=== PATIENT | female | born 1950 | race Caucasian/White ===

== ENCOUNTER 2022-02-22 09:00 | Outpatient (REF) | payer OTHER, SELFPAY | END 2022-02-22 09:01 | disposition home or self-care (01) | LOC: HO.SH 09:00 | PROVIDERS: Visit Provider Nurse Practitioner Adult Health | DX: Z01.118 Encounter for examination of ears and hearing with other abnormal findings (principal); H90.3 Sensorineural hearing loss, bilateral | CPT/HCPCS: 92557 ==

== ENCOUNTER 2023-08-27 11:57 | Emergency (ER) | payer MEDICARE, SELFPAY ==
--- NOTE | ~2023-08-27 | XR_ITS ---
EXAMINATION: XR CHEST CLINICAL INFORMATION: Cough COMPARISON: None available. TECHNIQUE: 2 views of the chest were obtained. FINDINGS: vascularity. LUNGS: Lungs are clear. No pneumothorax is seen. BONES: Bony skeleton is intact. XR/XR chest 2V IMPRESSION: Normal chest x-ray.
[2023-08-27 12:09] VITALS: BP 188/76; PULSE 70; RESP 24; TEMP 36.6; O2SAT 91; BMI 41.2
--- NOTE | 2023-08-27 12:13 | ED_ITS ---
HPI - General Adult General Chief complaint: Dyspnea Stated complaint: cough sinus on prednisone feels worse Time Seen by Provider: 08/27/23 12:25 Source: patient and family Mode of arrival: ambulatory Limitations: no limitations History of Present Illness ED Provider: Dr. Rodgers HPI narrative: 3 weeks of increasing cough and shortness of breath, cannot sleep because she is coughing so much, now productive of thick green sputum. patient has quit smoking but has a long history of smoking Onset (ago): week(s) Severity: moderate Related Data Previous Rx's ?Medication ?Instructions ?Recorded azithromycin 250 mg tablet 250 mg PO DAILY #4 tabs 08/27/23 Allergies Allergy/AdvReac Type Severity Reaction Status Date / Time No Known Allergies Allergy Verified 08/27/23 12:12 Review of Systems 2 Review of Systems: Yes all other systems are reviewed and are negative Neurologic: Denies Sensory deficit (Neuro) [facility] Social History Social History Advance Directives: No Advance Directives Information Provided: Yes Do you have a plan to hurt others: No Plan Physical Exam ED Vital Signs: Vital Signs - 24 hr 08/27/23 12:09 08/27/23 13:05 08/27/23 14:42 Temperature 97.8 F Pulse Rate 70 89 71 Respiratory Rate 24 H 20 18 Blood Pressure 188/76 H 172/57 H Pulse Oximetry 91 L 93 Oxygen Delivery Method Room Air Room Air BMI result Body Mass Index 41.2 Const Other: obese female coughing Nutritional Appearance: obese Orientation/consciousness: oriented to person and patient oriented x3 Limitations: no limitations HENMT Head: Yes normal to inspection Ears: external ears normal General nose exam: Normal external nose present Mouth: Normal oral and palatal mucosa present and oropharynx normal Throat: Yes posterior oropharynx normal Eyes General: appearance normal, both eyes and all related structures Neck Neck: Yes normal visual inspection Chest Chest palpation & inspection: normal inspection of the chest Resp Other: bilateral rales left greater than right Cardio Jugular venous distension: no JVD Rate: regular rate Rhythm: regular rhythm Heart sounds: S1 normal heart sound present and S2 normal heart sound present GI Inspection: Yes normal to inspection Palpation (GI): Soft to palpation, nontender and No hepatosplenomegaly present Auscultation: normal bowel sounds General: Yes no CVA tenderness Back/Spine/Pelvis Back: no CVA tenderness Skin General skin exam: no rashes or lesions noted Neuro General: oriented to person and patient oriented x3 Cranial nerves: Yes CN's II-XII intact bilaterally Motor exam (neuro): 5/5 motor strength present throughout Sensory Exam: No Sensory deficit (Neuro) Extrem General: Yes normal to inspection Psych Appearance: grossly normal Course Course Course Narrative: RME performed by Debbie Stout PA-C. Patient is a 72 year old assigned female at presenting to the emergency department with difficulty breathing. Patient states for 3 weeks she has had a cough that is getting progressively worse. Patient states that she is now having difficulty breathing. Detailed physical exam and review of systems are deferred to the reservation sales agent. EKG, labs, imaging, and swabs ordered. Patient brought back to room 6. Reevaluation(s) Reevaluation #1: no evidence of on pneumonia on xray but patient to be discharged on zpack as she producing thick green sputum Time: 15:33 Medications Administered Discontinued Medications Generic Name Dose Route Start Last Admin Trade Name Freq PRN Reason Stop Dose Admin Albuterol/Ipratropium 3 ml 08/27/23 13:00 08/27/23 13:02 Albuterol/Iprat 2.5/0.5mg 3 Ml Ampul.Neb INHALE 08/27/23 13:01 3 ml ONCE ONE Administration Azithromycin 500 mg 08/27/23 15:30 08/27/23 15:40 Azithromycin 500 Mg Tablet PO 08/27/23 15:31 500 mg ONCE ONE Administration Medical Decision Making Differential Diagnosis Differential Diagnoses: The differential diagnosis associated with the presentation includes (pneumonia, COPD exacerbation, bronchitis, cardiac ischemia were all considered) Admission/Observation Consideration of admission/observation: Escalation of care including admission/observation considered (upon arrival admission was considered) Lab Data 08/27/23 12:42 08/27/23 12:42 Labs: Lab Results 08/27/23 08/27/23 08/27/23 Range/Units 12:42 13:05 14:47 WBC 11.7 H (4.8-10.8) X10*3/uL RBC 4.42 (4.20-5.50) X10*6/uL Hgb 12.9 (12.0-16.0) g/dl Hct 38.9 (37.0-47.0) % MCV 88.0 (80.0-98.0) fL MCH 29.2 (27.0-33.0) pg MCHC 33.2 (31.0-35.0) g/dl RDW 13.6 (11.0-16.0) % Plt Count 228 (160-400) X10*3/uL MPV 9.0 L (9.4-12.3) fL Immature Gran % (Auto) 0.9 H (0.0-0.4) % Neut % (Auto) 69.0 (45-73) % Lymph % (Auto) 20.6 (20-40) % [place] % (Auto) 8.4 (2-11) % Eos % (Auto) 0.7 (0-4) % Baso % (Auto) 0.4 (0-2) % Lymph # (Auto) 2.4 (1.2-4.9) X10*3/uL [place] # (Auto) 1.0 (0.1-1.2) X10*3/uL Eos # (Auto) 0.1 (0.0-0.4) X10*3/uL Baso # (Auto) 0.1 (0.0-0.2) X10*3/uL Abs Immat Gran (auto) 0.10 H (0.00-0.03) X10*3/uL Absolute Neuts (auto) 8.1 (2.0-8.3) x10*3/uL Absolute Nucleated RBC 0.000 (0.0-0.012) X10*3/uL Nucleated RBC % (auto) 0.0 (0.0-0.2) /100WBC Sodium 133 L (135-145) mmol/L Potassium 3.7 (3.3-5.1) mmol/L Chloride 96 (96-108) mmol/L Carbon Dioxide 26 (22-29) mmol/L Anion Gap 15 (12-20) BUN 15 (9-16) mg/dL Creatinine 0.81 (0.5-1.4) mg/dL Estim Creat Clear Calc 74.5 Estimated GFR > 60 POC Glucose 118 H (60-115) mg/dL Random Glucose 189 H (60-115) mg/dL Calcium 9.7 (8.4-10.2) mg/dL Magnesium 2.2 (1.6-2.6) mg/dL Total Bilirubin 0.3 (0.0-1.0) mg/dL AST 19 (5-31) U/L ALT 22 (0-31) U/L Alkaline Phosphatase 57 (39-117) U/L Troponin I High Sens 3.6 (<3.5-17.0) ng/L Total Protein 7.1 (6.5-8.0) g/dL Albumin 3.8 (3.5-5.0) g/dL Urine Color Yellow Urine Appearance Clear Urine pH 7.0 (5.0-9.0) Ur Specific [place] 1.015 (1.005-1.025) Urine Protein Negative (Neg-Trace) mg/dL Urine Glucose (UA) Negative (Negative) mg/dL Urine Ketones Negative (Negative) mg/dL Urine Blood Negative (Negative) Urine Nitrite Negative (Negative) Ur Leukocyte Esterase Trace H (Negative) Urine RBC 0-2 (0-2) /HPF Urine WBC 0-5 (0-5) /HPF Ur Squamous Epith Cells 0-2 (0-2) /HPF Urine Bacteria None Seen (None Seen) Hyaline Casts 0-2 (0-2) /LPF Influenza Type A (PCR) NEGATIVE (Negative) Influenza Type B (PCR) NEGATIVE (Negative) RSV RNA Qual (PCR) NEGATIVE (Negative) SARS-CoV-2 RNA (RT-PCR) NEGATIVE (Negative) 08/27/23 Range/Units 15:10 WBC (4.8-10.8) X10*3/uL RBC (4.20-5.50) X10*6/uL Hgb (12.0-16.0) g/dl Hct (37.0-47.0) % MCV (80.0-98.0) fL MCH (27.0-33.0) pg MCHC (31.0-35.0) g/dl RDW (11.0-16.0) % Plt Count (160-400) X10*3/uL MPV (9.4-12.3) fL Immature Gran % (Auto) (0.0-0.4) % Neut % (Auto) (45-73) % Lymph % (Auto) (20-40) % [place] % (Auto) (2-11) % Eos % (Auto) (0-4) % Baso % (Auto) (0-2) % Lymph # (Auto) (1.2-4.9) X10*3/uL [place] # (Auto) (0.1-1.2) X10*3/uL Eos # (Auto) (0.0-0.4) X10*3/uL Baso # (Auto) (0.0-0.2) X10*3/uL Abs Immat Gran (auto) (0.00-0.03) X10*3/uL Absolute Neuts (auto) (2.0-8.3) x10*3/uL Absolute Nucleated RBC (0.0-0.012) X10*3/uL Nucleated RBC % (auto) (0.0-0.2) /100WBC Sodium (135-145) mmol/L Potassium (3.3-5.1) mmol/L Chloride (96-108) mmol/L Carbon Dioxide (22-29) mmol/L Anion Gap (12-20) BUN (9-16) mg/dL Creatinine (0.5-1.4) mg/dL Estim Creat Clear Calc Estimated GFR POC Glucose (60-115) mg/dL Random Glucose (60-115) mg/dL Calcium (8.4-10.2) mg/dL Magnesium (1.6-2.6) mg/dL Total Bilirubin (0.0-1.0) mg/dL AST (5-31) U/L ALT (0-31) U/L Alkaline Phosphatase (39-117) U/L Troponin I High Sens 4.4 (<3.5-17.0) ng/L Total Protein (6.5-8.0) g/dL Albumin (3.5-5.0) g/dL Urine Color Urine Appearance Urine pH (5.0-9.0) Ur Specific [place] (1.005-1.025) Urine Protein (Neg-Trace) mg/dL Urine Glucose (UA) (Negative) mg/dL Urine Ketones (Negative) mg/dL Urine Blood (Negative) Urine Nitrite (Negative) Ur Leukocyte Esterase (Negative) Urine RBC (0-2) /HPF Urine WBC (0-5) /HPF Ur Squamous Epith Cells (0-2) /HPF Urine Bacteria (None Seen) Hyaline Casts (0-2) /LPF Influenza Type A (PCR) (Negative) Influenza Type B (PCR) (Negative) RSV RNA Qual (PCR) (Negative) SARS-CoV-2 RNA (RT-PCR) (Negative) Independent Interpretation I performed an independent interpretation of an: EKG (sinus 62, pvcs, no st or twave changes) and Plain X-Ray (no infiltrate) Independent Historian Clinical information obtained from an independent historian. History obtained from or confirmed by: Spouse Chronic Conditions Patient?s care impacted by: Other (copd) Discharge Plan Discharge Clinical Impression: Acute exacerbation of chronic obstructive airways disease Patient Disposition: Home, Self-Care Instructions: COPD (Chronic Obstructive Pulmonary Disease) (ED) Prescriptions: New azithromycin 250 mg tablet 250 mg PO DAILY Qty: 4 0RF Referrals: Zeeshan Denson DO, MD [Primary Care Provider] - 3 days Print Language: Nicaraguan
--- NOTE | 2023-08-27 12:14 | ECG_ITS ---
Test Reason : Dyspena Blood Pressure : / mmHG Vent. Rate : 062 BPM Atrial Rate : 062 BPM P-R Int : 156 ms QRS Dur : 092 ms QT Int : 402 ms P-R-T Axes : 047 063 073 degrees QTc Int : 408 ms Sinus rhythm with Premature atrial complexes with Aberrant conduction Nonspecific T wave abnormality Borderline ECG No previous ECGs available Referred By: Debbie Stout Electronically Signed By:FOREST HUTCHINSON
[2023-08-27 12:46] LABS: MANUAL DIFF FLAG NO
[2023-08-27 12:49] LABS: Basophils Absolute Auto 0.1 X10*3/uL (0.0-0.2); Basophils Percent Auto 0.4 % (0-2); Eosinophils Absolute Auto 0.1 X10*3/uL (0.0-0.4); Eosinophils Percent Auto 0.7 % (0-4); Hematocrit 38.9 % (37.0-47.0); Hemoglobin 12.9 g/dl (12.0-16.0); Imm Gran Pct Auto 0.9 % (0.0-0.4); Lymphocytes Absolute Auto 2.4 X10*3/uL (1.2-4.9); Lymphocytes Percent Auto 20.6 % (20-40); Mean Corpuscular HGB Conc 33.2 g/dl (31.0-35.0); Mean Corpuscular Hemoglobin 29.2 pg (27.0-33.0); Monocytes Percent Auto 8.4 % (2-11); Neutrophils Absolute Auto 8.1 x10*3/uL (2.0-8.3); Platelet Count 228 X10*3/uL (160-400); Red Blood Count 4.42 X10*6/uL (4.20-5.50); Red Cell Distribution Width 13.6 % (11.0-16.0); White Blood Count 11.7 X10*3/uL (4.8-10.8)
[2023-08-27] MEDS: Albuterol/Iprat 2.5/0.5MG 3 ML AMPUL.NEB INHALE (13:02)
[2023-08-27 13:05] VITALS: PULSE 89; RESP 20; O2SAT 96
[2023-08-27 13:12] LABS: Appearance Urine Clear; Color Urine Yellow; Glucose Urine UA Negative (Negative); Leukocyte Esterase Urine Trace (Negative); Nitrite Urine Negative (Negative); Specific Gravity - Urine 1.015 (1.005-1.025); UMIC TRIGGER UACC YES; Urine Blood Negative (Negative); Urine Ketones Negative (Negative); Urine Protein Negative (Neg-Trace)
[2023-08-27 13:13] LABS: Troponin-I High Sensitivity 3.6 ng/L (<3.5-17.0)
[2023-08-27 13:15] LABS: Bacteria Urine None Seen (None Seen); Hyaline Casts Urine 0-2 /LPF (0-2); RBC Urine 0-2 /HPF (0-2); Squamous Epithelial Cell Urine 0-2 /HPF (0-2); WBC Urine 0-5 /HPF (0-5)
[2023-08-27 13:32] LABS: Influenza A PCR NEGATIVE (Negative); Influenza B PCR NEGATIVE (Negative); Resp Syncy Virus RNA Qual PCR NEGATIVE (Negative); SARS COV2 PCR INHOUSE NEGATIVE (Negative)
[2023-08-27 14:42] VITALS: BP 172/57; PULSE 71; RESP 18; O2SAT 93
[2023-08-27 14:52] LABS: Glucose, Whole Blood 118 mg/dL (60-115)
[2023-08-27] MEDS: Azithromycin 500 MG TABLET PO (15:40)
[2023-08-27 15:41] LABS: Troponin-I High Sensitivity 4.4 ng/L (<3.5-17.0)
[2023-08-27 15:46] LABS: Anion Gap 15 (12-20)
[2023-08-27 15:51] LABS: Alanine Aminotransferase 22 U/L (0-31); Albumin Level 3.8 g/dL (3.5-5.0); Alkaline Phosphatase 57 U/L (39-117); Aspartate Amino Transferase 19 U/L (5-31); Bilirubin Total 0.3 mg/dL (0.0-1.0); Blood Urea Nitrogen 15 mg/dL (9-16); Calcium 9.7 mg/dL (8.4-10.2); Carbon Dioxide 26 mmol/L (22-29); Chloride 96 mmol/L (96-108); Creatinine Clr Calc Pharmacy 74.5; Estimated Glomerular Filt Rate > 60; Glucose Random 189 mg/dL (60-115); Magnesium 2.2 mg/dL (1.6-2.6); Potassium 3.7 mmol/L (3.3-5.1); Sodium 133 mmol/L (135-145); Total Protein 7.1 g/dL (6.5-8.0)
[2023-08-27 16:02] VITALS: BP 155/58; PULSE 68; RESP 18; TEMP 36.5; O2SAT 93
[2023-08-27 16:15] VITALS: BP 155/58; PULSE 68; RESP 18; TEMP 36.5; O2SAT 93
== END 2023-08-27 16:15 | disposition home or self-care (01) ==
PROVIDERS: Physician Assistant Medical; Emergency Provider Emergency Medicine; PCP Internal Medicine
DX: J44.1 Chronic obstructive pulmonary disease with (acute) exacerbation (principal); R05.9 Cough, unspecified; R06.02 Shortness of breath; R94.31 Abnormal electrocardiogram [ECG] [EKG]; Z03.818 Encounter for observation for suspected exposure to other biological agents ruled out; Z79.899 Other long term (current) drug therapy
CPT/HCPCS: 0241U; 36415; 71046; 80053; 81001; 82947; 83735; 84484; 85025; 93005; 94640; 99284; 99285

== ENCOUNTER → 2023-08-27 12:14 | Outpatient (BNV) | payer MEDICARE, SELFPAY | PROVIDERS: Emergency Provider Emergency Medicine; PCP Internal Medicine; Visit Provider Internal Medicine | DX: I49.1 Atrial premature depolarization (principal) | CPT/HCPCS: 93010 ==

== ENCOUNTER 2023-10-18 12:56 | Outpatient (AMB) | payer MEDICARE, SELFPAY ==
--- NOTE | 2023-10-18 13:02 | A.OFFVIS_ITS ---
Vital Signs 10/18/23 13:04 Height 5 ft 4 in Weight 231 lb 7.766 oz BMI 39.7 BP 140/82 H Blood Pressure Location Rt brachial Position Sitting Pulse 62 Pulse Source Doppler Pulse Oximetry (%) 95 Oxygen Delivery Method Room Air Intake Visit Reasons: copd Allergies latex Allergy (Severe, Uncoded 10/18/23 13:08) rash lisinopril Adverse Reaction (Intermediate, Uncoded 10/18/23 13:08) Cough HPI HPI copd: Details: 73-year-old lady, former 40+ pack-year smoker, quit 2019 with underlying likely COPD referred for pulmonary evaluation. Patient states that she has been using Wixela, Spiriva, and albuterol MDI with suboptimal control of her symptoms that include nonproductive cough that gets worse at nighttime. Patient is currently on amoxicillin. She previously was on a different antibiotic and prednisone with suboptimal improvement her symptoms. She derive the most improvement from codeine syrup. Patient does not have recent pulmonary function testing. Her lung cancer screening CT chest from 08/16/2023 from [facility] demonstrated no worrisome nodules. [facility] Social History (Updated 10/18/23 @ 13:12 by RAMAN Jefferson) Patient Tobacco Use Status: Former Tobacco user Tobacco use type: Cigarette Years Smoked: quit 4 years ago, Started at 17 years old, 1.5 PPD Review of Systems Card Denies chest pain, Denies pedal edema, Denies dyspnea, Denies orthopnea and Denies paroxysmal nocturnal dyspnea Resp Reports cough, Denies hemoptysis, Denies excessive phlegm production, Denies dyspnea and Denies wheezing Aller/Immun Denies wheezing Physical Exam Vital Signs: Last Vital Signs Pulse 62 10/18/23 13:04 BP 140/82 H 10/18/23 13:04 Pulse Ox 95 10/18/23 13:04 Oxygen Delivery Method Room Air 10/18/23 13:04 BMI result Body Mass Index 39.7 Const General: no acute distress and alert Nutritional Appearance: obese Orientation/consciousness: Other orientation findings ( oriented) HEENT Head: Yes atraumatic Eyes General: appearance normal, both eyes and all related structures Sclerae: sclerae normal EOM: EOMs intact bilaterally Neck Neck: Yes supple Lymphatic: no lymphadenopathy noted Resp Effort & Inspection: normal respiratory effort and no use of accessory muscles Auscultation: clear to auscultation bilaterally Cardio Rate: regular rate Rhythm: regular rhythm Heart sounds: no gallops, no murmurs and no rubs Skin General skin exam: other ( warm) Extrem General: No clubbing and No cyanosis Assessment & Plan Assessment & Plan (1) Personal history of nicotine dependence: Code(s): Z87.891 - Personal history of nicotine dependence Category: Medical Plan: Results of CT chest from 08/19 reviewed, no worrisome nodules. Continue with yearly screening. (2) COPD (chronic obstructive pulmonary disease): Code(s): J44.9 - Chronic obstructive pulmonary disease, unspecified Category: Medical Plan: Likely COPD. Will obtain full PFT. Inhaler technique checked and adjusted. Continue Wixela, Spiriva, and albuterol MDI. Currently on amoxicillin for UTI, if no improvement in cough, will consider Levaquin. Coding Level of Care Code New Pt Level 4 (59788) Diagnoses Personal history of nicotine dependence Z87.891 COPD (chronic obstructive pulmonary disease) J44.9
[2023-10-18 13:04] VITALS: BP 140/82; PULSE 62; O2SAT 95; BMI 39.7
== END 2023-10-18 13:37 | disposition home or self-care (01) ==
PROVIDERS: PCP Internal Medicine; Visit Provider Internal Medicine Pulmonary Disease
DX: Z87.891 Personal history of nicotine dependence (principal); J44.9 Chronic obstructive pulmonary disease, unspecified
CPT/HCPCS: 99204

== ENCOUNTER → 2023-10-18 12:56 | Outpatient (BNVA) | payer MEDICARE, SELFPAY | PROVIDERS: PCP Internal Medicine; Visit Provider Internal Medicine Pulmonary Disease | DX: J44.9 Chronic obstructive pulmonary disease, unspecified (principal); Z87.891 Personal history of nicotine dependence | CPT/HCPCS: 99202 ==

== ENCOUNTER 2023-10-24 09:49 | Outpatient (REF) | payer MEDICARE, SELFPAY ==
--- NOTE | ~2023-10-24 | MM_ITS ---
EXAMINATION: MM SCREENING DIGITAL BREAST TOMOSYNTHESIS, BILATERAL CLINICAL INFORMATION: Screening. Asymptomatic. COMPARISON: Mammography: Comparison is made with available priors TECHNIQUE: Digital breast tomosynthesis is performed in both the craniocaudal and mediolateral oblique views along with computer-aided detection (CAD). Synthesized 2D images are generated from the tomosynthesis. FINDINGS: There are scattered areas of fibroglandular density (ACR BI-RADS breast composition Category b). Left: There are no significant masses, abnormal calcifications, or other abnormalities. Right: Focal asymmetry upper central breast anterior depth. No suspicious calcifications or other abnormal findings. MM/MM tomosynthesis screening BI IMPRESSION: Right Focal asymmetry in the right breast. Additional imaging and possible ultrasound recommended at this time. Additional imaging is recommended Left: No evidence of malignancy. ASSESSMENT: BI-RADS BI-RADS 0 - Incomplete: Needs additional Imaging. RECOMMENDATION: 1. Additional views of the right breast 2. Targeted ultrasound if warranted after review of the additional views. 3. Radiology department staff will contact the patient for additional imaging. Additional Imaging required This examination should not preclude the clinical evaluation of a suspicious palpable abnormality. This patient's information was entered into a reminder system with a target due date for their next mammogram. Electronically signed by: Silvana Arndt DO 11/16/2023 04:30 PM EDT
== END 2023-10-24 09:50 | disposition home or self-care (01) ==
LOC: HO.MAMMO 09:49
PROVIDERS: PCP Physician Assistant; Visit Provider Internal Medicine
DX: Z12.31 Encounter for screening mammogram for malignant neoplasm of breast (principal)
CPT/HCPCS: 77063; 77067

== ENCOUNTER → 2023-10-24 10:15 | Outpatient (BNV) | payer MEDICARE, SELFPAY | PROVIDERS: PCP Physician Assistant; Visit Provider Internal Medicine | DX: Z12.31 Encounter for screening mammogram for malignant neoplasm of breast (principal) | CPT/HCPCS: 77063; 77067 ==

== ENCOUNTER 2023-10-25 12:53 | Outpatient (AMB) | payer MEDICARE, SELFPAY ==
--- OUTSIDE RECORDS SUMMARY | 2023-10-25 12:54 | XMS_ITS | Continuity of Care Document ---
Author Organization [facility] Michael finley [facility] Address [address] [place] [address], [address] [place] [address]- Care Team Providers Care Community Health Specialist Name Role Phone Fercho JAVASCRIPT WEB DEVELOPER, Nay Primary Care Physician Encounter [facility] Date(s): 05/18/23 - 07/14/23 [facility] Michael Drivers [facility] [address] [place], [place] [address] Attending Physician: Marge Silva MD Admitting Physician: Marge Silva MD Referring Physician: Fercho PERKINS, Nay Medications Acidophilus By Mouth, Daily, 0 Refills, Maintenance, 05/18/23 10:24:00 EDT, Partial fill upon patient request if the prescription is for a schedule II opioid drug. Start Date: 05/18/23 Status: Ordered aspirin 81 mg oral capsule 1 capsule = 81 mg, By Mouth, Daily, do not exceed 48 capsules in 24 hours, # 30 capsule, 0 Refills,Maintenance, 05/18/23 10:24:00 EDT, Capsule, Partial fill upon patient request if the prescription is for a schedule II opioid drug. Start Date: 05/18/23 Status: Ordered clopidogrel 75 mg oral tablet 75 mg, 1, tablet, By Mouth, Daily, # 30 tablet, Refills 0, Maintenance, 05/18/23 10:27:00 EDT, Partial fill upon patient request if the prescription is for a schedule II opioid drug. Start Date: 05/18/23 Status: Ordered escitalopram 10 mg oral tablet 1 tablet = 10 mg, By Mouth, Daily, # 30 tablet, 0 Refills, Maintenance, 05/18/23 10:27:00 EDT, Tablet, Partial fill upon patient request if the prescription is for a schedule II opioid drug. Start Date: 05/18/23 Status: Ordered hydrochlorothiazide 25 mg oral tablet 12.5 mg, 0.5, tablet, By Mouth, 2 times a day, Refills 0, Maintenance, 05/18/23 10:25:00 EDT, Partial fill upon patient request if the prescription is for a schedule II opioid drug. Start Date: 05/18/23 Status: Ordered Lantus Solostar Pen 100 units/mL subcutaneous solution = 10 units, Subcutaneous Injection, Daily at bedtime, # 10 mL, 0 Refills, Maintenance, 05/18/23 10:23:00 EDT, Solution, Partial fill upon patient request if the prescription is for a schedule II opioid drug. Start Date: 05/18/23 Status: Ordered losartan 100 mg oral tablet 1 tablet = 100 mg, By Mouth, Daily, # 30 tablet, 0 Refills, Maintenance, 05/18/23 10:26:00 EDT, Tablet, Partial fill upon patient request if the prescription is for a schedule II opioid drug. Start Date: 05/18/23 Status: Ordered metFORMIN 500 mg oral tablet 1 tablet = 500 mg, By Mouth, 2 times a day, # 180 tablet, 0 Refills, Maintenance, 05/18/23 10:25:00EDT, Tablet, Partial fill upon patient request if the prescription is for a schedule II opioid drug. Start Date: 05/18/23 Status: Ordered metoprolol 50 mg oral tablet 50 mg, 1, tablet, By Mouth, 2 times a day, # 180 tablet, Refills 0, Maintenance, 05/18/23 10:25:00 EDT, Partial fill upon patient request if the prescription is for a schedule II opioid drug. Start Date: 05/18/23 Status: Ordered Multivitamin 0 Refills, Maintenance, 05/18/23 10:23:00 EDT, Partial fill upon patient request if the prescription is for a schedule II opioid drug. Start Date: 05/18/23 Status: Ordered rosuvastatin 10 mg oral capsule 1 capsule = 10 mg, By Mouth, Daily, # 30 capsule, 0 Refills, Maintenance, 05/18/23 10:26:00 EDT, Capsule, Partial fill upon patient request if the prescription is for a schedule II opioid drug. Start Date: 05/18/23 Status: Ordered Spiriva Respimat 10 ACT 2.5 mcg/inh inhalation aerosol 2 puffs = 5 mcg, Inhalation, Daily, # 4 Gm, 0 Refills, Maintenance, 05/18/23 10:23:00 EDT, Aerosol,Partial fill upon patient request if the prescription is for a schedule II opioid drug. Start Date: 05/18/23 Status: Ordered terazosin 10 mg oral capsule 10 mg, 1, capsule, By Mouth, Daily at bedtime, # 30 capsule, Refills 0, Maintenance, 05/18/23 10:26:00 EDT, Partial fill upon patient request if the prescription is for a schedule II opioid drug. Start Date: 05/18/23 Status: Ordered Tylenol 8 HR Arthritis Pain 650 mg oral tablet, extended release 2 tablet = 1,300 mg, By Mouth, Every 8 hours, PRN as needed for fever, # 100 tablet, 0 Refills, Maintenance, 05/18/23 10:25:00 EDT, ER Tablet, Partial fill upon patient request if the prescription isfor a schedule II opioid drug. Start Date: 05/18/23 Status: Ordered Wixela Inhub 250 mcg-50 mcg inhalation powder 1 inhalation, Inhalation, 2 times a day, rinse mouth and throat after use, 0 Refills, Maintenance, 05/18/23 10:19:00 EDT, Powder, Partial fill upon patient request if the prescription is for a schedule II opioid drug. Start Date: 05/18/23 Status: Ordered Problem List Condition Confirmation Course Effective Dates Status H ealth Status Informant Arthritis Confirmed Active Basal cell adenocarcinoma Confirmed Active COPD (chronic obstructive pulmonary disease) Confirmed Active Diverticulitis Confirmed Active Hypertension Confirmed Active Severe obesity Confirmed Active Social History Social History Type Response Smoking Status Former smoker, quit more than 30 days ago entered on: 05/18/23 Sex Patient Care team information Care Team Personnel Name: Nay Brantley NP Position: Reference Physician Member Role: PCP Address: Address: [address] [place] [address] [address] [place] [address]-
--- OUTSIDE RECORDS SUMMARY | 2023-10-25 12:54 | XMS_ITS | Continuity of Care Document ---
Author Organization [facility] Michael finley [facility] Address [address] [place] [address]- Care Team Providers Care Tin Tie Machine Operator Automatic Name Role Phone Fercho DOCK SUPERVISOR, Nay Primary Care Physician [place] [facility] [place] [facility] [address] [place], [place] [address] Medications Acidophilus By Mouth, Daily, 0 Refills, [...] Reference Physician Member Role: PCP Address: Address: [address] [place], [place] [id number] [place], [place] [address]
--- NOTE | 2023-10-25 12:56 | MHC.OFFVIS ---
Intake Visit Reasons: PMB Intake Note: bright red bleeding 10/14/23, just finished antbiotics for UTI 10/24/23 Data Processing Operator: Data Processing Operator Present (Liset) Allergies latex Allergy (Severe, Uncoded 10/25/23 12:57) rash lisinopril Adverse Reaction (Intermediate, Uncoded 10/25/23 12:57) Cough Post menopausal: Yes HPI Comments Details: Presenting referred from PCP for an episode of bleeding of unknown origin. The patient had blood per urine unsure if it was coming from the vagina or the urine, went to an urgent care and was diagnosed with a UTI and has been on amoxicillin since then no more bleeding. [facility] Surgical History (Updated 10/25/23 @ 13:16 by Manjinder James MD) Status post hysterectomy Social History (Updated 10/18/23 @ 13:12 by RAMAN Jefferson) Patient Tobacco Use Status: Former Tobacco user Tobacco use type: Cigarette Years Smoked: quit 4 years ago, Started at 17 years old, 1.5 PPD Review of Systems Const All systems reviewed & are unremarkable except as noted in HPI and below Card Reports as per HPI and Reports no additional complaints Resp Reports as per HPI and Reports no additional complaints GI Reports as per HPI and Reports no additional complaints Reports as per HPI Physical Exam Const General: cooperative, healthy appearing and comfortable General: Yes bladder normal to palpation External Female Exam: No lesion Speculum Exam - Vagina: normal appearance of the vagina, normal vaginal discharge and not erythematous Speculum Exam - Cervix: Cervix absent Bimanual exam- vagina & uterus: bladder normal to palpation and uterus absent Bimanual Exam- Adnexa, other: Other (No masses detected) Results AMB Urinalysis, Automated UA Leukoctes 0 Guicho/uL Last Edit by RAMAN Bee on 10/25/23 13:07 UA Nitrite Negative Last Edit by RAMAN Bee on 10/25/23 13:07 UA Urobilinogen 0 mg/dL Last Edit by RAMAN Bee on 10/25/23 13:07 UA Protein 0 mg/dL Last Edit by RAMAN Bee on 10/25/23 13:07 UA pH 7.0 Last Edit by RAMAN Bee on 10/25/23 13:07 UA Blood 0 Jorge/uL Last Edit by Daylin RMAAN Broussard on 10/25/23 13:07 UA Specific [place] 1.010 Last Edit by Daylin Keven Quinn Marii on 10/25/23 13:07 UA Ketone Negative Last Edit by Daylin Keven Quinn Marii on 10/25/23 13:07 UA Bilirubin 0 mg/dL Last Edit by Daylinchetan Quinn Marii on 10/25/23 13:07 UA Glucose 0 mg/dL Last Edit by Daylin Quinn Marii on 10/25/23 13:07 Assessment & Plan Assessment & Plan (1) UTI (urinary tract infection): Code(s): N39.0 - Urinary tract infection, site not specified Category: Medical Plan: Repeat urine dip was negative for microscopic hematuria. Discussed with the patient normal pelvic exam showing no evidence of abnormalities in the vagina, absent cervix and uterus status post hysterectomy and normal pelvic exam with no evidence of adnexal pathology. All questions answered, the patient verbalized understanding Orders: Orders AMB Urinalysis Automated Today Z87.440 - Personal history of urinary (tract) infections Coding Level of Care Code New Pt Level 3 (39262) Diagnoses UTI (urinary tract infection) N39.0
== END 2023-10-25 13:18 | disposition home or self-care (01) ==
LOC: HO.HWS 12:53
PROVIDERS: PCP Internal Medicine; Visit Provider Obstetrics & Gynecology
DX: N39.0 Urinary tract infection, site not specified (principal); Z87.440 Personal history of urinary (tract) infections
CPT/HCPCS: 99203

== ENCOUNTER → 2023-10-25 12:53 | Outpatient (BNVA) | payer MEDICARE, SELFPAY | PROVIDERS: PCP Internal Medicine; Visit Provider Obstetrics & Gynecology | DX: N39.0 Urinary tract infection, site not specified (principal) | CPT/HCPCS: 81003; 99202 ==

== ENCOUNTER 2023-11-03 08:48 | Outpatient (REF) | payer MEDICARE, SELFPAY ==
--- NOTE | 2023-11-03 09:00 | PFT_ITS ---
Flows: FEV1: 72 % of predicted at 1.50 L FVC: 84 % of predicted at 2.29 L FEV1/FVC: 65 % Bronchodilator response: Absent Volumes: Total lung capacity: 87 % of predicted at 4.28 L Residual volume: 95 % of predicted at 1.94 L Slow vital capacity: 82 % of predicted at 2.33 L Expiratory reserve volume: 67 % of predicted at 0.46 L Diffusion capacity: Moderately decreased, adjusts to being mildly decreased after correction for alveolar ventilation. Impression: Mild obstructive ventilatory defect with no bronchodilator response. Decreased diffusion capacity suggests emphysema. MTDD
[2023-11-03 10:12] VITALS: PULSE 68; RESP 16; O2SAT 67
== END 2023-11-03 08:49 | disposition home or self-care (01) ==
LOC: HO.RESP 08:48
PROVIDERS: PCP Internal Medicine; Visit Provider Internal Medicine Pulmonary Disease
DX: J44.9 Chronic obstructive pulmonary disease, unspecified (principal)
CPT/HCPCS: 94010; 94640; 94727; 94729

== ENCOUNTER 2023-11-07 13:31 | Outpatient (AMB) | payer MEDICARE, SELFPAY ==
[2023-11-07 13:54] VITALS: BP 138/72; PULSE 64; O2SAT 94; BMI 40.0
--- NOTE | 2023-11-07 13:54 | A.OFFVIS_ITS ---
Vital Signs 11/07/23 13:54 Height 5 ft 4 in Weight 233 lb BMI 40.0 BP 138/72 Blood Pressure Location Rt brachial Position Sitting Pulse 64 Pulse Source Doppler Pulse Oximetry (%) 94 Oxygen Delivery Method Room Air Intake Visit Reasons: COPD Allergies latex Allergy (Severe, Uncoded 10/25/23 12:57) rash lisinopril Adverse Reaction (Intermediate, Uncoded 10/25/23 12:57) Cough HPI HPI COPD: Details: 73-year-old lady, former 40+ pack-year smoker, quit 2019 with underlying likely COPD referred for pulmonary evaluation. Patient states that she has been using Wixela, Spiriva, and albuterol MDI with suboptimal control of her symptoms that include nonproductive cough that gets worse at nighttime. Patient is currently on amoxicillin. She previously was on a different antibiotic and prednisone with suboptimal improvement her symptoms. She derive the most improvement from codeine syrup. Patient does not have recent pulmonary function testing. Her lung cancer screening CT chest from 08/16/2023 from [facility] demonstrated no worrisome nodules. After the last office visit patient had pulmonary function tests that showed [id number] COPD. Her symptom control improved with improving inhaler technique. She denies recent acute exacerbations. [facility] Surgical History (Updated 10/25/23 @ 13:16 by Manjinder James MD) Status post hysterectomy Social History (Updated 10/18/23 @ 13:12 by Miranda Diaz Marii) Patient Tobacco Use Status: Former Tobacco user Tobacco use type: Cigarette Years Smoked: quit 4 years ago, Started at 17 years old, 1.5 PPD Review of Systems Const Denies daytime sleepiness, Denies excessive sweating, Denies fatigue, Denies fever(s), Denies lethargy, Denies malaise, Denies night sweats, Denies snoring and Denies weight loss Eyes Denies blurry vision and Denies itchy eyes ENT Denies nasal congestion, Denies post nasal drip, Denies sinus pain, Denies sinus pressure and Denies other ( Thrush) Card Denies chest pain, Denies pedal edema, Denies dyspnea, Denies orthopnea and Denies paroxysmal nocturnal dyspnea Resp Denies cough, Denies hemoptysis, Denies excessive phlegm production, Denies dyspnea, Denies snoring and Denies wheezing GI Denies abdominal pain and Denies heartburn Musc Denies myalgias, Denies arthralgias and Denies joint swelling Skin/Breast Denies rash Neuro Denies memory loss and Denies seizure-like activity Psych Denies abnormal sleep pattern, Denies anxiety and Denies memory loss Endo Denies excessive sweating, Denies fatigue and Denies heat intolerance Ruiz/Lymph Denies easy bruising Aller/Immun Denies itchy eyes, Denies seasonal rhinorrhea and Denies wheezing Physical Exam Vital Signs: Last Vital Signs Pulse 64 11/07/23 13:54 BP 138/72 11/07/23 13:54 Pulse Ox 94 11/07/23 13:54 Oxygen Delivery Method Room Air 11/07/23 13:54 BMI result Body Mass Index 40.0 Const General: no acute distress and alert Nutritional Appearance: obese Orientation/consciousness: Other orientation findings ( oriented) HEENT Head: Yes atraumatic Eyes General: appearance normal, both eyes and all related structures Sclerae: sclerae normal EOM: EOMs intact bilaterally Neck Neck: Yes supple Lymphatic: no lymphadenopathy noted Resp Effort & Inspection: normal respiratory effort and no use of accessory muscles Auscultation: clear to auscultation bilaterally Cardio Rate: regular rate Rhythm: regular rhythm Heart sounds: no gallops, no murmurs and no rubs Skin General skin exam: other ( warm) Extrem General: No clubbing, No cyanosis and No edema Assessment & Plan Assessment & Plan (1) COPD (chronic obstructive pulmonary disease): Code(s): J44.9 - Chronic obstructive pulmonary disease, unspecified Category: Medical Plan: At this time reasonably controlled on current regimen of Wixela, Spiriva, and albuterol MDI. Continue current regimen. (2) Personal history of nicotine dependence: Code(s): Z87.891 - Personal history of nicotine dependence Category: Medical Plan: Continue with yearly screening, next July of 2024. Orders: Orders CT lung screening 08/06/24 Z87.891 - Personal history of nicotine dependence Coding Level of Care Code Est Pt Level 4 (61467) Diagnoses COPD (chronic obstructive pulmonary disease) J44.9 Personal history of nicotine dependence Z87.891
== END 2023-11-07 14:27 | disposition home or self-care (01) ==
PROVIDERS: PCP Internal Medicine; Visit Provider Internal Medicine Pulmonary Disease
DX: J44.9 Chronic obstructive pulmonary disease, unspecified (principal); Z87.891 Personal history of nicotine dependence
CPT/HCPCS: 99214

== ENCOUNTER → 2023-11-07 13:31 | Outpatient (BNVA) | payer MEDICARE, SELFPAY | PROVIDERS: PCP Internal Medicine; Visit Provider Internal Medicine Pulmonary Disease | DX: J44.9 Chronic obstructive pulmonary disease, unspecified (principal); Z87.891 Personal history of nicotine dependence | CPT/HCPCS: 99212 ==

== ENCOUNTER 2023-11-19 05:45 | Outpatient (REF) | payer MEDICARE, SELFPAY ==
--- NOTE | ~2023-11-19 | CT_ITS ---
EXAMINATION: CT ABDOMEN AND PELVIS WITHOUT CONTRAST CLINICAL INFORMATION: Bladder wall thickening. Hematuria. COMPARISON: None available. TECHNIQUE: Multidetector volumetric imaging was performed from the superior aspect of the liver through the pubic symphysis. Sagittal and coronal reformatted images were obtained on the technologist's workstation. This CT examination was performed using dose optimization techniques as appropriate, variously including the following: *Automated exposure control *Adjustment of mA and/or kV according to patient size (this includes techniques or standardized protocols for targeted exams where dose is matched to indication/reason for exam; i.e. extremities or head) *Use of iterative reconstruction technique DLP: 776 mGy-cm FINDINGS: LUNG BASES: The visualized lung bases are unremarkable. LIVER, GALLBLADDER, AND BILIARY TREE: The noncontrast liver is normal in size and contour. No biliary ductal dilatation is present. The gallbladder is unremarkable with no evidence of radiopaque gallstones, gallbladder wall thickening, or obvious pericholecystic inflammatory changes. PANCREAS: Unremarkable. SPLEEN: Unremarkable. ADRENAL GLANDS: Unremarkable. KIDNEYS AND URETERS: The kidneys are symmetric in size. No hydronephrosis, hydroureter, or calculi seen. Left renal cysts. No further imaging follow-up is needed. No significant perinephric stranding. BLADDER: Unremarkable. GASTROINTESTINAL TRACT: Small and large bowel loops are of normal caliber. No small bowel obstruction. ABDOMINAL WALL: No significant hernia is appreciated. LYMPH NODES: No bulky lymphadenopathy. VASCULAR: Normal caliber abdominal aorta. Marked atherosclerotic vascular calcification. There is marked calcification of the superior mesenteric artery. PELVIC VISCERA: Uterus is surgically absent. OSSEOUS STRUCTURES: No destructive bone lesions. CT/CT abdomen pelvis wo IV con IMPRESSION: No nephrolithiasis or hydronephrosis. The urinary bladder is underdistended which limits evaluation. Electronically signed by: Vic Ram MD 11/19/2023 09:48 AM EDT
== END 2023-11-19 05:46 | disposition home or self-care (01) ==
LOC: HO.CT 05:45
PROVIDERS: PCP Internal Medicine; Visit Provider Internal Medicine
DX: R31.9 Hematuria, unspecified (principal)
CPT/HCPCS: 74176

== ENCOUNTER 2023-11-28 08:39 | Outpatient (REF) | payer MEDICARE, SELFPAY ==
--- NOTE | ~2023-11-28 | MM_ITS ---
EXAMINATION: MM DIAGNOSTIC DIGITAL BREAST TOMOSYNTHESIS, RIGHT US BREAST LIMITED, RIGHT MAMMOGRAPHY: CLINICAL INFORMATION: Diagnostic views for focal asymmetry right breast anterior 12:00 axis seen on screening exam. COMPAR[place] [place] 10/17/2021, and 10/14/2020 ([facility] TECHNIQUE: Digital breast tomosynthesis is performed in the following views: Full field right 3-D MLO view, 3 view right cc view nipple in profile, and 3-D spot compression views right MLO and right CC x2. Computer-aided diagnosis was used for this study. This was followed by targeted right breast ultrasound. FINDINGS: There are scattered areas of fibroglandular density (ACR BI-RADS breast composition Category b). The focal asymmetry in the approximate 12:00 axis of the anterior right breast moves posteriorly on the nipple in profile CC view, actually in the mid one third of the right breast. It is circumscribed, with gentle lobulations, and contains central areas of fat. It is most likely a lymph node or a small area of fat necrosis. Presence of fat is consistent with benign etiology. We will evaluate this finding with ultrasound. ULTRASOUND: CLINICAL INFORMATION: As above COMPARISON: No prior ultrasounds. TECHNIQUE: Targeted sonographic evaluation was performed using a high frequency linear transducer. Attention to the superior right breast 10:00 to 2:00 mid depth was given, to include the finding seen on mammography. Selected archived documentation. FINDINGS: RIGHT BREAST: -In the 1:00 axis right breast, 5 cm from the nipple, there is a hyperechoic oval mass within the subcutaneous breast fat with a central hypoechoic region, mild posterior acoustic shadowing, and mildly indistinct margins. This measures 1.1 x 0.8 x 0.7 cm. It is classic in appearance for a region of fat necrosis. No internal color Doppler signal or significant surrounding Doppler signal. No associated skin thickening. -No additional abnormalities identified. -Findings relayed to the patient by the technologist. MM/MM tomosynthesis added views R IMPRESSION: 1. There are no findings suspicious for malignancy right breast. 2. Abnormality of interest in the 1:00 axis of the right breast has a classic appearance for fat necrosis, in the 1:00 subcutaneous breast fat as described. This is probably benign, RECOMMEND SIX-MONTH INTERVAL FOLLOW-UP ULTRASOUND ONLY to assess for appropriate evolution. OVERALL ASSESSMENT: Mammography: BI-RADS 3 - Probably benign finding(s) - 6 month follow-up suggested Ultrasound: BI-RADS 3 - Probably benign finding(s) - 6 month follow-up suggested RECOMMENDATION: 6 Month F/U This patient's information was entered into a reminder system with a target due date for their next mammogram. Electronically signed by: Devon Rubin MD 11/28/2023 10:14 AM EDT
== END 2023-11-28 08:40 | disposition home or self-care (01) ==
LOC: HO.MAMMO 08:39
PROVIDERS: PCP Internal Medicine; Visit Provider Internal Medicine
DX: N64.89 Other specified disorders of breast (principal)
CPT/HCPCS: 76642; 77061; 77065

== ENCOUNTER → 2023-11-28 09:00 | Outpatient (BNV) | payer MEDICARE, SELFPAY | PROVIDERS: PCP Internal Medicine; Visit Provider Radiology Diagnostic Radiology | DX: R92.8 Other abnormal and inconclusive findings on diagnostic imaging of breast (principal) | CPT/HCPCS: 76642; 77065; G0279 ==

== ENCOUNTER 2024-05-08 10:09 | Outpatient (AMB) | payer MEDICARE, SELFPAY ==
[2024-05-08 10:14] VITALS: BP 138/64; PULSE 71; O2SAT 93; BMI 39.2
--- NOTE | 2024-05-08 10:14 | MHC.OFFVIS ---
Vital Signs 05/08/24 10:14 Height 5 ft 4 in Weight 228 lb 2.855 oz BMI 39.2 BP 138/64 Blood Pressure Location Lt brachial Position Sitting Pulse 71 Pulse Source Doppler Pulse Oximetry (%) 93 Oxygen Delivery Method Room Air Intake Visit Reasons: COPD Allergies latex Allergy (Severe, Uncoded 10/25/23 12:57) rash lisinopril Adverse Reaction (Intermediate, Uncoded 10/25/23 12:57) Cough HPI HPI COPD: Details: 73-year-old lady, former 40+ pack-year smoker, quit 2019 Followed for underlying moderate COPD and pulmonary nodules. Patient has been using Wixela, Spiriva, and albuterol MDI with good control of his symptoms. She denies recent acute exacerbations. [facility] Surgical History (Updated 10/25/23 @ 13:16 by Manjinder James MD) Status post hysterectomy Social History (Updated 10/18/23 @ 13:12 by Miranda Diaz Marii) Patient Tobacco Use Status: Former Tobacco user Tobacco use type: Cigarette Years Smoked: quit 4 years ago, Started at 17 years old, 1.5 PPD Review of Systems Const Denies daytime sleepiness, Denies excessive sweating, Denies fatigue, Denies fever(s), Denies lethargy, Denies malaise, Denies night sweats, Denies snoring and Denies weight loss Eyes Denies blurry vision and Denies itchy eyes ENT Denies nasal congestion, Denies post nasal drip, Denies sinus pain, Denies sinus pressure and Denies other ( Thrush) Card Denies chest pain, Denies pedal edema, Denies dyspnea, Denies orthopnea and Denies paroxysmal nocturnal dyspnea Resp Denies cough, Denies hemoptysis, Denies excessive phlegm production, Denies dyspnea, Denies snoring and Denies wheezing GI Denies abdominal pain and Denies heartburn Musc Denies myalgias, Denies arthralgias and Denies joint swelling Skin/Breast Denies rash Neuro Denies memory loss and Denies seizure-like activity Psych Denies abnormal sleep pattern, Denies anxiety and Denies memory loss Endo Denies excessive sweating, Denies fatigue and Denies heat intolerance Ruiz/Lymph Denies easy bruising Aller/Immun Denies itchy eyes, Denies seasonal rhinorrhea and Denies wheezing Physical Exam Vital Signs: Last Vital Signs Pulse 71 03/13/25 10:14 BP 138/64 05/08/24 10:14 Pulse Ox 93 05/08/24 10:14 Oxygen Delivery Method Room Air 05/08/24 10:14 BMI result Body Mass Index 39.2 Const General: no acute distress and alert Nutritional Appearance: obese Orientation/consciousness: Other orientation findings ( oriented) HEENT Head: Yes atraumatic Eyes General: appearance normal, both eyes and all related structures Sclerae: sclerae normal EOM: EOMs intact bilaterally Neck Neck: Yes supple Lymphatic: no lymphadenopathy noted Resp Effort & Inspection: normal respiratory effort and no use of accessory muscles Auscultation: clear to auscultation bilaterally Cardio Rate: regular rate Rhythm: regular rhythm Heart sounds: no gallops, no murmurs and no rubs Skin General skin exam: other ( warm) Extrem General: No clubbing, No cyanosis and No edema Assessment & Plan Assessment & Plan (1) COPD (chronic obstructive pulmonary disease): Code(s): J44.9 - Chronic obstructive pulmonary disease, unspecified Category: Medical Plan: Well controlled current regimen of Wixela, Spiriva, and albuterol MDI. Continue current regimen. (2) Personal history of nicotine dependence: Code(s): Z87.891 - Personal history of nicotine dependence Category: Medical Plan: Lung cancer screening CT chest is pending for 07/2024. Coding Level of Care Code Est Pt Level 4 (51208) Diagnoses COPD (chronic obstructive pulmonary disease) J44.9 Personal history of nicotine dependence Z87.891
--- OUTSIDE RECORDS SUMMARY | 2024-05-08 12:38 | XMS_ITS | Clinical Summary ---
Author Organization [facility] Address [address] [place] [address] Phone Care Team Providers Care Commissioned Sales Associate Name Role Phone MiriamZeeshan shaw Primary Care Provider [phone] Allergies No known active allergies Social History Tobacco Use Types Packs/Day Years Used Date Smoking Tobacco: Never Assessed Comments Unknown Sex and Gender Information Value Date Recorded Sex Assigned at Female 01/25/2024 8:03 AM EST Legal Sex Female 1:54 AM EST Gender Identity Female 01/25/2024 8:03 AM EST Sexual Orientation Straight 01/25/2024 8: 03 AM EST Plan of Treatment Health Maintenance Due Date Last Done Comments Diabetes: Annual Foot Exam 10/05/1959 Diabetes: Annual Retina Eye Exam 10/05/1959 DTaP,Tdap,and Td Vaccines (1 - Tdap) 1968 Cholesterol Screening (Lipid Panel) 01/29/2022 Depression Screening 01/29/2022 Falls Risk Assessment 01/29/2022 Hepatitis C Screening 01/29/2022 Medicare Annual Wellness Visit 01/29/2022 Social Influencers of Health Screening 01/29/2022 Diabetes: Annual Urine Albumin-Creatinine Ratio (uACR) 04/03/2024 Diabetes: Blood Sugar Control Test (HGBA1C) 10/01/2024 04/03/2024 Breast Cancer Screening 10/19/2024 10/20/19 23, 10/17/2021, 10/14/2020, Additional history exists Diabetes: Annual GFR (Glomerular Filtration Rate) 04/03/2025 04/03/2024, 03/19/2024, 03/10/2024, Additional history exists Hypertension/CHF/CAD Annual BMP Blood Test 04/03/2025 04/03/2024, 03/19/2024, 03/10/2024, Additional history exists Colorectal Cancer Screening: FIT-DNA (Cologuard) 06/21/2026 06/22/2023, 06/22/2023, 10/05/2020 Osteoporosis Screening (Bone Density Screening) 01/06/2032 01/05/2022, 10/01/2019 RSV Immunization Patients 60+ Years Old Completed 11/30/2022 COVID-19 Vaccine Completed 10/30/2023, 06/2022, 11/21/2021, Additional history exists Influenza Vaccine Completed 10/30/2023, , 11/21/2021, Additional history exists Pneumococcal Vaccine: 50+ Years Completed 10/30/2023 Zoster Vaccines Completed 01/25/2024, 11/13/2023 HIB Vaccines Aged Out No longer eligi ble based on patient's age to complete this topic HPV Vaccines Aged Out No longer eligi ble based on patient's age to complete this topic Hepatitis A Vaccines Aged Out No long er eligible based on patient's age to complete this topic Hepatitis B Vaccines Aged Out No long er eligible based on patient's age to complete this topic IPV Vaccines Aged Out No longer eligi ble based on patient's age to complete this topic MMR Vaccines Aged Out No longer eligi ble based on patient's age to complete this topic Meningococcal ACWY Vaccine Aged Out N o longer eligible based on patient's age to complete this topic Meningococcal B Vacine Aged Out No lo nger eligible based on patient's age to complete this topic RSV Immunization Patients Under 20 months Aged Out No longer eligible based on patient's age to complete this topic Varicella Vaccines Aged Out No longer eligible based on patient's age to complete this topic Procedures Procedure Name Priority Date/Time Associated Diagnosis Comments HEMOGLOBIN A1C Routine 04/03/2024 1:34 PM EST Diabetes mellitus (CMS/HCC) Essential hypertension, malignant BASIC METABOLIC PANEL Routine 04/03/2024 1:34 PM EST Diabetes mellitus (CMS/HCC) Essential hypertension, malignant CREATININE, SERUM Routine 03/19/2024 1:3 3 PM EST Hypouricemia Nonspecific abnormal results of kidney function study BUN Routine 03/19/2024 1:33 PM EST Hypouricemia Nonspecific abnormal results of kidney function study CREATININE, SERUM Routine 03/10/2024 11: 46 AM EST Abnormal blood chemistry Nonspecific abnormal results of kidney function study BUN Routine 03/10/2024 11:46 AM EST Abnormal blood chemistry Nonspecific abnormal results of kidney function study [facility] SCREENING DIGITAL Routine 10/19/2022 12:46 PM EDT Encounter for screening mammogram for malignant neoplasm of breast [facility] DEXA AXIAL SKELETON Routine 01/05/2022 10:56 AM EST Encounter for screening for osteoporosis from Last 3 Months or Most Recently Relevant to Health Maintenance Results * (ABNORMAL) Hemoglobin A1c (04/03/2024 1:34 PM EST) Pathologist [facility] Hemoglobin A1C 6.5(H) <6.5 % LAB CHEMISTRY METHOD 04/03/2024 8:12 PM EST [facility] Mean Bld Glu Estim. 140 mg/dL LAB CHEMISTRY METHOD 04/03/2024 8:12 PM EST [facility] Blood Venous blood specimen / Unknown Venipuncture / Unknown 04/03/2024 1:34 PM EST 04/03/2024 1:34 PM EST us Jair Santa LAB BLOOD ORDERABLES Final Resul t [facility] [address] [place] [address], * (ABNORMAL) Basic metabolic panel (04/03/2024 1:34 PM EST) Sodium 133 133 - 145 mmol/L LAB CHEMISTRY METHOD 04/03/2024 3:06 PM EST [facility] Potassium 3.3(L) 3.5 - 5.5 mmol/L LAB CHEMISTRY METHOD 04/03/2024 3:06 PM [facility] Chloride 97 96 - 110 mmol/L LAB CHEMISTRY METHOD 04/03/2024 3:06 PM [facility] CO2 30 21 - 32 mmol/L LAB CHEMISTRY METHOD 04/03/2024 3:06 PM [facility] Anion Gap 6 3 - 11 LAB CHEMISTRY METHOD 04/03/2024 3:06 PM [facility] Glucose 166(H) 70 - 100 mg/dL LAB CHEMISTRY METHOD 04/03/2024 3:06 PM [facility] BUN 11 5 - 25 mg/dL LAB CHEMISTRY METHOD 04/03/2024 3:06 PM [facility] Creatinine 0.83 0.50 - 1.10 mg/dL LAB CHEMISTRY METHOD 04/03/2024 3:06 PM [facility] eGFR 74 >=60 mL/min/1. 73m2 LAB CHEMISTRY METHOD 04/03/2024 3:06 PM [facility] Comment:Calculation based on the??Chronic Kidney Disease Epidemiology Collaboration (CKD-EPI) equation refit??without adjustment for race. BUN/Creatinine Ratio 13.3 LAB CHEMISTRY METHOD 04/03/2024 3:06 PM [facility] Calcium 8.8 8.5 - 10.5 mg/dL LAB CHEMISTRY METHOD 04/03/2024 3:06 PM [facility] Blood Venous blood specimen / Unknown Venipuncture / Unknown 04/03/2024 1:34 PM EST 04/03/2024 1:34 PM EST us Jair Santa LAB BLOOD ORDERABLES Final Resul t [facility] [address] [place] [address], * Creatinine (03/19/2024 1:33 PM EST) Only the most recent of2 resultswithin the time period is included. Creatinine 0.78 0.50 - 1.10 mg/dL LAB CHEMISTRY METHOD 03/19/2024 5:19 PM EST [facility] eGFR 80 >=60 mL/min/1. 73m2 LAB CHEMISTRY METHOD 03/19/2024 5:19 PM EST [facility] Comment:Calculation based on the??Chronic Kidney Disease Epidemiology Collaboration (CKD-EPI) equation refit??without adjustment for race. Blood Venous blood specimen / Unknown Venipuncture / Unknown 03/19/2024 1:33 PM EST 03/19/2024 1:33 PM EST Go Skinner MD LAB BLOOD ORDERABLES Final Result Performing Organization Address City/[facility]/ZIP Co de Phone Number [facility] [address] [place] [address], * BUN (03/19/2024 1:33 PM EST) Only the most recent of2 resultswithin the time period is included. BUN 12 5 - 25 mg/dL LAB CHEMISTRY METHOD 03/19/2024 5:19 PM EST [facility] Blood Venous blood specimen / Unknown Venipuncture / Unknown 03/19/2024 1:33 PM EST 03/19/2024 1:33 PM EST Go Skinner MD LAB BLOOD ORDERABLES Final Result [facility] [address] [place] [address], * [facility] SCREENING DIGITAL (10/19/2022 12:46 PM EDT) Anatomical Region Laterality Modality Mammography 10/19/2022 10:3 2 AM EDT Narrative 10/19/2022 12:46 PM EDT [facility] Diagnostic Imaging Department [address] [place] [id number] Patient: ??SMITH,ANDREAS P ?/Age/Sex: 1950 - 72 - F Unit#: ??[id number] ? Location/Status: ??SPDIMAM/REG CLI ? Mnemonic/Ordering Site: ??DIGSC/SPMAM Ordering Physician: ??DIANA LOCK NP [facility] Screening Digital - 10/19/22 - 1113 Report Status:Signed EXAM: [facility] Screening Digital EXAM DATE AND TIME: 10/19/2022 11:13 AM HISTORY: ??Screening. Mother had breast carcinoma at age 89. COMPARISON: ??10/17/21, 10/14/20, 10/01/19 TECHNIQUE: Bilateral digital breast tomosynthesis was performed in the CC and MLO projections. Computer aided detection with [employer] 3D 3.1 was employed. TISSUE DENSITY: a. The breasts are almost entirely fatty. FINDINGS: No suspicious masses, grouped microcalcifications, or areas of architectural distortion are seen. The skin and vascularity are unremarkable. IMPRESSION: Stable mammographic appearance of the breasts. ??No evidence of malignancy is seen. A negative mammogram in the presence of a clinically suspicious palpable abnormality does not preclude the possibility of malignancy or alter the indications for biopsy. BI-RADS: ??Category 1: Negative RECOMMENDATION(S): 1: Routine screening mammogram BILATERAL in 1 year. Dictating Physician: ??TIANNA KIM MD Electronically Signed by: ??TIANNA KIM MD Dic Date/Time: ??10/19/22 1246 Sign date/Time: ??10/19/22 1246 Procedure Note Tianna Kim MD - 04/03/2023 [facility] Diagnostic Imaging Department [address] [place] [id number] Patient: ANDREAS SMITH Andrei /Age/Sex: 1950 - 72 - F Unit#: [id number] Location/Status: [facility] CLI Mnemonic/Ordering Site: [facility] Ordering Physician: DIANA LOCK [employer] [facility] Screening Digital - 10/19/22 - 1113 Report Status:Signed EXAM: [facility] Screening Digital EXAM DATE AND TIME: 10/19/2022 11:13 AM HISTORY: Screening. Mother had breast carcinoma at age 89. COMPARISON: 10/17/21, 10/14/20, 10/01/19 TECHNIQUE: Bilateral digital breast tomosynthesis was performed in the CCand MLO projections. Computer aided detection with [employer] 3D 3.1was employed. TISSUE DENSITY: a. The breasts are almost entirely fatty. FINDINGS: No suspicious masses, grouped microcalcifications, or areas ofarchitectural distortion are seen. The skin and vascularity are unremarkable. IMPRESSION: Stable mammographic appearance of the breasts. No evidence of malignancyis seen. A negative mammogram in the presence of a clinically suspicious palpable abnormality does not preclude the possibility of malignancy or alter the indications for biopsy. BI-RADS: Category 1: Negative RECOMMENDATION(S): 1: Routine screening mammogram BILATERAL in 1 year. Dictating Physician: TIANNA KIM MD Electronically Signed by: TIANNA KIM MD Dic Date/Time: 10/19/22 1246 Sign date/Time: 10/19/22 1246 us Diana Lock NP IMG BI PROCEDURES Final Re sult * [facility] DEXA AXIAL SKELETON (01/05/2022 10:56 AM EST) Anatomical Region Laterality Modality Mammography 01/05/2022 10:1 9 AM EST Narrative 01/05/2022 10:56 AM EST [facility] Diagnostic Imaging Department [address] [place] [address] Patient: ??ANDREAS SMITH ?/Age/Sex: 1950 - 71 - F Unit#: ??[id number] ? Location/Status: ??SPDIMAM/REG CLI ? Mnemonic/Ordering Site: ??MAMDEXAAX/SPMAM Ordering Physician: ??DIANA LOCK NP [facility] Dexa Axial Skeleton - 01/05/221041 HISTORY: ??The patient is a 71-year-old postmenopausal female with clinical concern for metabolic bone disease. FINDINGS: ??Dual energy x-ray absorptiometry of the lumbar spine and femurs is performed. The mean bone mineral density at L1-2 is 1.271 gm/cm2 which is 109% of that of young normals and 117% of that of age matched controls. This yields a T-score of 0.9 and a Z-score of 1.5 and there is therefore no evidence of osteoporosis or osteopenia here. The mean bone mineral density of the femurs bilaterally is 1.098 gm/cm2 which is 109% of that of young normals and 121% of that of age matched controls. ??This yields a T-score of 0.7 and a Z-score of 1.5 and there is therefore no evidence of osteoporosis or osteopenia here. IMPRESSION: 1. There is no evidence of osteoporosis or osteopenia. ??There has been an increase of 3.2% in bone mineral density in the lumbar spine since the prior examination of 10/01/2019. ??There has been a decrease of 2.2% in bone mineral density in the right femur and an increase of 3.6% in bone mineral density in the left femur. 2. FRAX analysis yields a 10-year probability of major osteoporotic fracture of 7.8% and a 10-year probability of hip fracture of 0.5%. Code 41717 Dictating Physician: ??ORQUIDEA POSADAS MD Electronically Signed by: ??ORQUIDEA POSADAS MD Dic Date/Time: ??01/05/22 1055 Sign date/Time: ??01/05/22 1056 Procedure Note Orquidea Posadas MD - 03/30/2023 [facility] Diagnostic Imaging Department [address] [place] [address] Patient: ANDREAS SMITH/Age/Sex: 1950 - 71 - Unit#: [id number] Location/Status: SPDIMAM/REG CLI [facility] Ordering Physician: DIANA LOCK NP [facility] Dexa Axial Skeleton - 01/05/221041 HISTORY: The patient is a 71-year-old postmenopausal female withclinical concern for metabolic bone disease. FINDINGS: Dual energy x-ray absorptiometry of the lumbar spine and femursis performed. The mean bone mineral density at L1-2 is 1.271 gm/cm2 which is109% of that of young normals and 117% of that of age matched controls. Thisyields a T-score of 0.9 and a Z-score of 1.5 and there is therefore no evidenceof osteoporosis or osteopenia here. The mean bone mineral density of the femurs bilaterally is 1.098 gm/zx2ofyud is 109% of that of young normals and 121% of that of age matched controls.This yields a T-score of 0.7 and a Z-score of 1.5 and there is therefore noevidence of osteoporosis or osteopenia here. IMPRESSION: 1. There is no evidence of osteoporosis or osteopenia. There has beenan increase of 3.2% in bone mineral density in the lumbar spine since theprior examination of 10/01/2019. There has been a decrease of 2.2% in bonemineral density in the right femur and an increase of 3.6% in bone mineral densityin the left femur. 2. FRAX analysis yields a 10-year probability of major osteoporoticfracture of 7.8% and a 10-year probability of hip fracture of 0.5%. Code 16818 Dictating Physician: ORQUIDEA POSADAS MD Electronically Signed by: ORQUIDEA POSADAS MD Dic Date/Time: 01/05/22 105 Sign date/Time: 01/05/22 105 Diana P Hangasky [employer] IMG BI PROCEDURES Final Re sult from Last 3 Months or Most Recently Relevant to Health Maintenance Insurance [employer] MEDICARE MEDICAID - [place] Care Teams Commissioned Sales Associate Relationship Specialty Start Date End Date Zeeshan Denson DO [address] [place] [phone] PCP - General 08/21/23
--- OUTSIDE RECORDS SUMMARY | 2024-05-08 12:38 | XMS_ITS ---
Author Name [facility] Organization Unknown History of Medication Use Medication Directions Dispensed Refills Start Date End Date Stat us pravastatin 20 mg tablet TAKE 1 TABLET BY MOUTH EVERY DAY active lidocaine HCl 10 mg/mL (1 %) injection solution Take 5 mL by injection route. 07/31/2022 active amoxicillin 500 mg tablet TAKE 1 TABLET BY MOUTH THREE TIMES DAILY UNTIL ALL TAKEN 08/11/2022 active Lantus Solostar U-100 Insulin 100 unit/mL (3 mL) subcutaneous pen ADMINISTER 23 UNITS UNDER THE SKIN DAILY active metoprolol tartrate 50 mg tablet TAKE 1 TABLET BY MOUTH TWICE DAILY active clopidogrel 75 mg tablet TAKE 1 TABLET BY MOUTH EVERY DAY active losartan 100 mg tablet TAKE 1 TABLET BY MOUTH EVERY DAY active Allergies Allergen Reaction Severity Comment Documented Date Source Statu s LISINOPRIL ENS_AONECT ATORVASTATIN ENS_AONECT LATEX ENS_AONECT Problems Problem Status Onset Date Problem Type Date of Resoluti on Source Effusion of right knee joint active 2022-07-31 ProblemAct ENS_AONECT Encounters Encounter Type Encounter Reason Primary Diagnosis Location Date Ambulatory [facility] 09/06/2022 Ambulatory [facility] 08/31/2022 Ambulatory [facility] 08/11/2022 Ambulatory [facility] 08/11/2022 Ambulatory [facility] 08/01/2022 Ambulatory [facility] 07/31/2022 Ambulatory [facility] 07/28/2022 Ambulatory [facility] 07/28/2022 Ambulatory [facility] 07/28/2022 Ambulatory [facility] 07/12/2022 Ambulatory [facility] 07/12/2022
--- OUTSIDE RECORDS SUMMARY | 2024-05-08 12:38 | XMS_ITS | Encounter Summary ---
Author Organization [facility] Address [address] [place] [address] Care Team Providers Care Grommet Machine Operator Name Role Phone Zeeshan Denson DO Primary Care Provider [phone] Encounter Details Date Type Department Care Team (Late st Contact Info) Description 01/29/2024 Lab Requisition [facility] - Main Lab [address] [facility] [place] [address] Jair Santa [address] [place] [phone] Hematuria, unspecified; Urinary tract infection, site not specified Social History Tobacco Use Types Packs/Day Years Used Date Smoking Tobacco: Never Assessed Comments Unknown Sex and Gender Information Value Date Recorded Sex Assigned at Female 01/25/2024 8:03 AM EST Legal Sex Female 1:54 AM EST Gender Identity Female 01/25/2024 8:03 AM EST Sexual Orientation Straight 01/25/2024 8: 03 AM EST documented as of this encounter Plan of Treatment Not on file documented as of this encounter Procedures Procedure Name Priority Date/Time Associated Diagnosis Comments URINALYSIS WITH REFLEX MICROSCOPIC Routine 01/29/2024 2:00 PM EST Hematuria, unspecified Urinary tract infection, site not specified URINALYSIS WITH REFLEX MICROSCOPIC Routine 01/29/2024 2:00 PM EST Hematuria, unspecified Urinary tract infection, site not specified CULTURE URINE Routine 01/29/2024 2:00 PM EST Hematuria, unspecified Urinary tract infection, site not specified documented in this encounter Results * (ABNORMAL) Urinalysis with reflex microscopic (01/29/2024 2:00 PM EST) Specific [place] Urine 1.024 1.003 - 1.030 LAB URINALYSIS - AUTOMATED METHOD 01/29/2024 6:27 PM [facility] pH, Urine 7.0 5.0 - 8.0 pH LAB URINALYSIS - AUTOMATED METHOD 01/29/2024 6:27 PM [facility] Leukocytes, Urine Moderate(A) Negative LAB URINALYSIS - AUTOMATED METHOD 01/29/2024 6:27 PM [facility] Nitrite, Urine Negative Negative LAB URINALYSIS - AUTOMATED METHOD 01/29/2024 6:27 PM [facility] Protein, Urine 100(A) <=Trace mg/dL LAB URINALYSIS - AUTOMATED METHOD 01/29/2024 6:27 PM [facility] Glucose, Urine Negative Negative mg/dL LAB URINALYSIS - AUTOMATED METHOD 01/29/2024 6:27 PM [facility] Ketones, Urine Trace(A) Negative mg/dL LAB URINALYSIS - AUTOMATED METHOD 01/29/2024 6:27 PM [facility] Urobilinogen , Urine 0.2 0.2 - 1.0 mg/dL LAB URINALYSIS - AUTOMATED METHOD 01/29/2024 6:27 PM [facility] Bilirubin, Urine Negative Negative LAB URINALYSIS - AUTOMATED METHOD 01/29/2024 6:27 PM [facility] Blood, Urine Moderate(A) Negative LAB URINALYSIS - AUTOMATED METHOD 01/29/2024 6:27 PM [facility] RBC, Urine 415.0(H) 0 - 4 /HPF LAB URINALYSIS - AUTOMATED METHOD 01/29/2024 6:27 PM [facility] WBC, Urine 296.9(H) 0 - 4 /HPF LAB URINALYSIS - AUTOMATED METHOD 01/29/2024 6:27 PM EST [facility] Squamous Epithelial, Urine 25 0 - 60 /LPF LAB URINALYSIS - AUTOMATED METHOD 01/29/2024 6:27 PM EST [facility] Bacteria, Urine Many(A) Negative /HPF LAB URINALYSIS - AUTOMATED METHOD 01/29/2024 6:27 PM [facility] Hyaline Casts, Urine 0.8 0 - 3 /LPF LAB URINALYSIS - AUTOMATED METHOD 01/29/2024 6:27 PM EST [facility] Urine Urine specimen obtained by clean catch procedure / Unknown 01/29/2024 2:00 PM EST 01/29/2024 5:31 PM EST Jair Santa LAB URINE ORDERABLES Final Resul t [facility] [address] [place] [address], * (ABNORMAL) Culture urine (01/29/2024 2:00 PM EST) Culture, Urine >100,000 CFU/mL Klebsiella pneumoniae ssp pneumoniae(A) CAREN 01/31/2024 10:47 AM EST [facility] Comment: This is an edited result. Previous organism was Gram negative bacilli on 01/30/2024 at 1327 EST. Urine Urine specimen obtained by clean catch procedure / Unknown 01/29/2024 2:00 PM EST 01/29/2024 5:31 PM EST Narrative Organism Antibiotic Method Susceptibility Klebsiella pneumoniae ssp pneumoniae Amoxicillin/Clavulanate CAREN 16 ug/ml: Intermediate Klebsiella pneumoniae ssp pneumoniae Ampicillin/Sulbactam CAREN >=32 ug/ml: Resistant Klebsiella pneumoniae ssp pneumoniae Piperacillin/Tazobactam CAREN >=128 ug/ml: Resistant Klebsiella pneumoniae ssp pneumoniae Cefazolin (Urine) CAREN 8 ug/ml: Susceptible Klebsiella pneumoniae ssp pneumoniae Cefoxitin CAREN <=4 ug/ml: Susceptible Klebsiella pneumoniae ssp pneumoniae Ceftazidime CAREN <=0.5 ug/ml: Susceptible Klebsiella pneumoniae ssp pneumoniae Ceftriaxone CAREN <=0.25 ug/ml: Susceptible Klebsiella pneumoniae ssp pneumoniae Cefepime CAREN <=0.12 ug/ml: Susceptible Klebsiella pneumoniae ssp pneumoniae Meropenem CAREN <=0.25 ug/ml: Susceptible Klebsiella pneumoniae ssp pneumoniae Amikacin CAREN <=1 ug/ml: Susceptible Klebsiella pneumoniae ssp pneumoniae Gentamicin CAREN <=1 ug/ml: Susceptible Klebsiella pneumoniae ssp pneumoniae Ciprofloxacin CAREN <=0.06 ug/ml: Susceptible Klebsiella pneumoniae ssp pneumoniae Levofloxacin CAREN <=0.12 ug/ml: Susceptible Klebsiella pneumoniae ssp pneumoniae Nitrofurantoin CAREN 64 ug/ml: Intermediate Klebsiella pneumoniae ssp pneumoniae Trimethoprim/Sulfamethoxazo le CAREN <=20 ug/ml: Susceptible Jair Santa LAB MICROBIOLOGY - GENERAL ORDER WISAM Final Result [facility] [address] [place] [address], documented in this encounter Visit Diagnoses Diagnosis Hematuria, unspecified Urinary tract infection, site not specified documented in this encounter Care Teams Grommet Machine Operator Relationship Specialty Start Date End Date Zeeshan Denson DO [address] [place] [phone] PCP - General 08/21/23 documented as of this encounter
== END 2024-05-08 10:30 | disposition home or self-care (01) ==
LOC: HO.HPS 10:10
PROVIDERS: PCP Internal Medicine; Visit Provider Internal Medicine Pulmonary Disease
DX: J44.9 Chronic obstructive pulmonary disease, unspecified (principal); Z87.891 Personal history of nicotine dependence
CPT/HCPCS: 99214

== ENCOUNTER → 2024-05-08 10:09 | Outpatient (BNVA) | payer MEDICARE, SELFPAY | PROVIDERS: PCP Internal Medicine; Visit Provider Internal Medicine Pulmonary Disease | DX: J44.9 Chronic obstructive pulmonary disease, unspecified (principal); Z87.891 Personal history of nicotine dependence | CPT/HCPCS: 99212 ==

== ENCOUNTER 2024-06-02 10:39 | Outpatient (REF) | payer MEDICARE, MEDICAID, SELFPAY ==
--- NOTE | ~2024-06-02 | US_ITS ---
EXAMINATION: US DIAGNOSTIC ULTRASOUND BREAST, RIGHT CLINICAL INFORMATION: 6 month follow-up for hypoechoic and hyperechoic area in the right breast at 1:00 5 cm from the nipple.. COMPARISON: Comparison is made with relevant prior imaging. TECHNIQUE: Ultrasound of the breast is performed with real-time urbina scale imaging and color Doppler. FINDINGS: Targeted color Doppler ultrasound in the right breast at 1:00 5 cm from the nipple demonstrates interval decreased size of previously seen hyperechoic area the internal hypoechoic area is nearly resolved. The area today measures 5 x 3 x 4 mm previously measuring 11 x 8 x 7 mm. No sonographic abnormality is seen. Results are discussed with the patient at time of visit. US/US breast RT limited mamm only IMPRESSION: Interval decreased size of hyperechoic area at 1:00 5 cm from the nipple in the right breast. Recommend 6 month follow-up when the patient is due for bilateral mammography to demonstrate resolution. ASSESSMENT: BI-RADS 3: Probably Benign RECOMMENDATION: Diagnostic mammography in 6 months. This patient's information was entered into a reminder system with a target due date for their next mammogram. Electronically signed by: Silvana Arndt DO 06/02/2024 01:54 PM EDT
--- OUTSIDE RECORDS SUMMARY | 2024-06-02 12:37 | XMS_ITS | Clinical Summary ---
Author Organization [facility] Address [address] [place] [address] Phone Care Team Providers Care Wine Master Name Role Phone MiriamZeeshan shaw Primary Care Provider [phone] Allergies No known active allergies Social History [...] Density Screening) 01/06/2032 01/05/2022, 10/01/2019 RSV Immunization Adult Patients Completed 11/30/2022 COVID-19 Vaccine Completed 10/30/2023, 06/2022, [...] Nonspecific abnormal results of kidney function study [facility] SCREENING DIGITAL Routine 10/19/2022 12:46 PM EDT Encounter for screening mammogram for malignant neoplasm of breast [facility] DEXA AXIAL SKELETON Routine 01/05/2022 10:56 AM EST Encounter for screening for osteoporosis from Last 3 Months or Most Recently Relevant to Health Maintenance Results * (ABNORMAL) Hemoglobin A1c (04/03/2024 1:34 PM EST) Pathologist [facility] Hemoglobin A1C 6.5(H) <6.5 % LAB CHEMISTRY METHOD 04/03/2024 8:12 PM EST [facility] Mean Bld Glu Estim. 140 mg/dL LAB CHEMISTRY METHOD 04/03/2024 8:12 PM EST [facility] Blood Venous blood specimen / Unknown Venipuncture / Unknown 04/03/2024 1:34 PM EST 04/03/2024 1:34 PM EST Jair Santa LAB BLOOD ORDERABLES Final Resul t [facility] [address] [place] [address], * (ABNORMAL) Basic metabolic panel (04/03/2024 1:34 PM EST) Pathologist [facility] Sodium 133 133 - 145 mmol/L LAB CHEMISTRY METHOD 04/03/2024 3:06 PM EST [facility] Potassium 3.3(L) 3.5 - 5.5 mmol/L LAB CHEMISTRY METHOD 04/03/2024 3:06 PM [facility] Chloride 97 96 - 110 mmol/L LAB CHEMISTRY METHOD 04/03/2024 3:06 PM [facility] CO2 30 21 - 32 mmol/L LAB CHEMISTRY METHOD 04/03/2024 3:06 PM [facility] Anion Gap 6 3 - 11 LAB CHEMISTRY METHOD 04/03/2024 3:06 PM [facility] Glucose 166(H) 70 - 100 mg/dL LAB CHEMISTRY METHOD 04/03/2024 3:06 PM [facility] BUN 11 5 - 25 mg/dL LAB CHEMISTRY METHOD 04/03/2024 3:06 PM [facility] Creatinine 0.83 0.50 - 1.10 mg/dL LAB CHEMISTRY METHOD 04/03/2024 3:06 PM [facility] eGFR 74 >=60 mL/min/1. 73m2 LAB CHEMISTRY METHOD 04/03/2024 3:06 PM [facility] Comment:Calculation based on the??Chronic Kidney Disease Epidemiology Collaboration (CKD-EPI) equation refit??without adjustment for race. BUN/Creatinine Ratio 13.3 LAB CHEMISTRY METHOD 04/03/2024 3:06 PM [facility] Calcium 8.8 8.5 - 10.5 mg/dL LAB CHEMISTRY METHOD 04/03/2024 3:06 PM [facility] Blood Venous blood specimen / Unknown Venipuncture / Unknown 04/03/2024 1:34 PM EST 04/03/2024 1:34 PM EST us Jair Santa LAB BLOOD ORDERABLES Final Resul t [facility] [address] [place] [address], * Creatinine (03/19/2024 1:33 PM EST) Only the most recent of2 resultswithin the time period is included. Creatinine 0.78 0.50 - 1.10 mg/dL LAB CHEMISTRY METHOD 03/19/2024 5:19 PM EST [facility] eGFR 80 >=60 mL/min/1. 73m2 LAB CHEMISTRY METHOD 03/19/2024 5:19 PM EST [facility] Comment:Calculation based on the??Chronic Kidney Disease Epidemiology Collaboration (CKD-EPI) equation refit??without adjustment for race. Blood Venous blood specimen / Unknown Venipuncture / Unknown 03/19/2024 1:33 PM EST 03/19/2024 1:33 PM EST Go Skinner MD LAB BLOOD ORDERABLES Final Result Performing Organization Address City/[facility]/ZIP Co de Phone Number [facility] [address] [place] [address], * BUN (03/19/2024 1:33 PM EST) Only the most recent of2 resultswithin the time period is included. BUN 12 5 - 25 mg/dL LAB CHEMISTRY METHOD 03/19/2024 5:19 PM EST [facility] Blood Venous blood specimen / Unknown Venipuncture / Unknown 03/19/2024 1:33 PM EST 03/19/2024 1:33 PM EST Go Skinner MD LAB BLOOD ORDERABLES Final Result [facility] [address] [place] [address], * [facility] SCREENING DIGITAL (10/19/2022 12:46 PM EDT) Anatomical Region Laterality Modality Mammography 10/19/2022 10:3 2 AM EDT Narrative 10/19/2022 12:[address] [facility] Diagnostic Imaging Department [address] [place] [id number] Patient: ??SMITH,ANDREAS P ?/Age/Sex: 1950 - 72 - F Unit#: ??[id number] ? Location/Status: ??SPDIMAM/REG CLI ? Mnemonic/Ordering Site: ??DIGSC/SPMAM Ordering Physician: ??DIANA LOCK NP [facility] Screening Digital - 10/19/22 - 1113 Report Status:Signed EXAM: [facility] Screening Digital EXAM DATE AND TIME: 10/19/2022 11:13 AM HISTORY: ??Screening. Mother had breast carcinoma at age 89. COMPARISON: ??10/17/21, 10/14/20, 10/01/19 TECHNIQUE: Bilateral digital breast tomosynthesis was performed in the CC and MLO projections. Computer aided detection with Haloband 3D 3.1 was employed. TISSUE DENSITY: a. [...] Procedure Note Tianna Kim MD - 04/03/2023 [facility] Diagnostic Imaging Department [address] [place] [id number] Patient: ANDREAS SMITH Andrei /Age/Sex: 1950 - 72 - F Unit#: [id number] Location/Status: [facility] Mnemonic/Ordering Site: [facility] Ordering Physician: DIANA LOCK NANOTECHNOLOGY ENGINEERING TECHNICIAN [facility] Screening Digital - 10/19/22 - 1113 Report Status:Signed EXAM: [facility] Screening Digital EXAM DATE AND TIME: 10/19/2022 11:13 AM HISTORY: Screening. Mother had breast carcinoma at age 89. COMPARISON: 10/17/21, 10/14/20, 10/01/19 TECHNIQUE: Bilateral digital breast tomosynthesis was performed in the CCand MLO projections. Computer aided detection with Haloband 3D 3.1was employed. TISSUE DENSITY: a. The [...] Sign date/Time: 10/19/22 1246 us Diana Lock NANOTECHNOLOGY ENGINEERING TECHNICIAN IMG BI PROCEDURES Final Re sult * [facility] DEXA AXIAL SKELETON (01/05/2022 10:56 AM EST) Anatomical Region Laterality Modality Mammography 01/05/2022 10:1 9 AM EST Narrative 01/05/2022 10:[address] [facility] Diagnostic Imaging Department [address] [place] [address] Patient: ??ANDREAS SMITH ?/Age/Sex: 1950 - 71 - F Unit#: ??[id number] ? Location/Status: ??SPDIMAM/REG CLI ? Mnemonic/Ordering Site: [...] probability of hip fracture of 0.5%. Code 59007 Dictating Physician: ??ORQUIDEA POSADAS MD Electronically Signed by: ??ORQUIDEA POSADAS MD Dic Date/Time: ??01/05/22 1055 Sign date/Time: ??01/05/22 1056 Procedure Note Orquidea Posadas MD - 03/30/2023 [facility] Diagnostic Imaging Department [address] [place] [address] Patient: ANDREAS SMITH./Age/Sex: 1950 - 71 - F Unit#: [id number] Location/Status: SPDIMAM/REG CLI Mnemonic/Ordering Site: MAMDEXAAX/SPMAM Ordering Physician: DIANA LOCK NP [facility] Dexa [...] density of the femurs bilaterally is 1.098 gm/[id number] is 109% of that of young normals [...] probability of hip fracture of 0.5%. Code 78262 Dictating Physician: ORQUIDEA POSADAS MD Electronically Signed by: ORQUIDEA POSADAS MD Dic Date/Time: 01/05/22 105 Sign date/Time: 01/05/22 105 us Diana Lock NP IMG BI PROCEDURES Final Re sult from Last 3 Months or Most Recently Relevant to Health Maintenance Insurance [employer] MEDICARE MEDICAID - [place] Care Teams Wine Master Relationship Specialty Start Date End Date Zeeshan Denson DO [address] [place] [phone] PCP - General 08/21/23
--- OUTSIDE RECORDS SUMMARY | 2024-06-02 12:37 | XMS_ITS | Encounter Summary ---
Author Organization [facility] Address [address] [place] [address] Care Team Providers Care Regional Marketing Director Name Role Phone Zeeshan Denson DO Primary Care Provider [phone] Encounter Details Date Type Department Care Team (Late st Contact Info) Description 01/29/2024 Lab Requisition [facility] Lab [address] [facility] [place] [address] Jair Santa [address] [place] [phone] Hematuria, unspecified; Urinary tract infection, site [...] reflex microscopic (01/29/2024 2:00 PM EST) Specific [place] Urine 1.024 1.003 - 1.030 LAB URINALYSIS - AUTOMATED METHOD 01/29/2024 6:27 PM [facility] pH, Urine 7.0 5.0 - 8.0 pH LAB URINALYSIS - AUTOMATED METHOD 01/29/2024 6:27 PM [facility] Leukocytes, Urine Moderate(A) Negative LAB URINALYSIS - AUTOMATED METHOD 01/29/2024 6:27 PM [facility] Nitrite, Urine Negative Negative LAB URINALYSIS - AUTOMATED METHOD 01/29/2024 6:27 PM [facility] Protein, Urine 100(A) <=Trace mg/dL LAB URINALYSIS - AUTOMATED METHOD 01/29/2024 6:27 PM [facility] Glucose, Urine Negative Negative mg/dL LAB URINALYSIS - AUTOMATED METHOD 01/29/2024 6:27 PM [facility] Ketones, Urine Trace(A) Negative mg/dL LAB URINALYSIS - AUTOMATED METHOD 01/29/2024 6:27 PM [facility] Urobilinogen , Urine 0.2 0.2 - 1.0 mg/dL LAB URINALYSIS - AUTOMATED METHOD 01/29/2024 6:27 PM [facility] Bilirubin, Urine Negative Negative LAB URINALYSIS - AUTOMATED METHOD 01/29/2024 6:27 PM [facility] Blood, Urine Moderate(A) Negative LAB URINALYSIS - AUTOMATED METHOD 01/29/2024 6:27 PM [facility] RBC, Urine 415.0(H) 0 - 4 /HPF LAB URINALYSIS - AUTOMATED METHOD 01/29/2024 6:27 PM [facility] WBC, Urine 296.9(H) 0 - 4 /HPF LAB URINALYSIS - AUTOMATED METHOD 01/29/2024 6:27 PM EST [facility] Squamous Epithelial, Urine 25 0 - 60 /LPF LAB URINALYSIS - AUTOMATED METHOD 01/29/2024 6:27 PM EST [facility] Bacteria, Urine Many(A) Negative /HPF LAB URINALYSIS - AUTOMATED METHOD 01/29/2024 6:27 PM [facility] Hyaline Casts, Urine 0.8 0 - 3 /LPF LAB URINALYSIS - AUTOMATED METHOD 01/29/2024 6:27 PM EST [facility] Urine Urine specimen obtained by clean catch procedure / Unknown 01/29/2024 2:00 PM EST 01/29/2024 5:31 PM EST Jair Santa LAB URINE ORDERABLES Final Resul t [facility] [address] [place] [address], * (ABNORMAL) Culture urine (01/29/2024 2:00 PM EST) Culture, Urine >100,000 CFU/mL Klebsiella pneumoniae ssp pneumoniae(A) CAREN 01/31/2024 10:47 AM EST [facility] Comment: This is an edited [...] ug/ml: Susceptible Klebsiella pneumoniae ssp pneumoniae Cefepime ACREN <=0.12 ug/ml: Susceptible Klebsiella pneumoniae ssp pneumoniae [...] MICROBIOLOGY - GENERAL ORDER WISAM Final Result [facility] ([facility] [address] [place] [address], documented in this encounter Visit Diagnoses Diagnosis Hematuria, unspecified Urinary tract infection, site not specified documented in this encounter Care Teams Regional Marketing Director Relationship Specialty Start Date End Date Zeeshan Denson DO [address] [place] [phone] PCP - General 08/21/23 documented as of this encounter
--- OUTSIDE RECORDS SUMMARY | 2024-06-02 12:37 | XMS_ITS | Data Portability ---
Author Organization [place] [facility] Andrei Amezquita AONE Oark Address [address] [place] [address] Care Team Providers Care 911 Emergency Services Dispatcher Name Role Phone DIANA LOCK Primary Care Provider Assessment Encounter Date Assessment Date Assessment LastModified by Organization Details LastModified Time 07/28/2022 07/28/2022 Pleasant 71-year-old female with ongoing right knee stiffness and mild pain findings consistent with joint effusion. Patient opted for an aspiration. She understands that there is an increased risk for hemarthrosis being on Plavix and aspirin. Understanding this risk she wishes to proceed forward. After verbal consent was obtained for aspiration of the right knee. The procedure was carried out. The patient tolerated the procedure well with no obvious bleeding. She had significant improvement regarding her range of motion and her level of discomfort. She was instructed to wear a compression sleeve without hinges. I would like to see her back in 2 weeks time for repeat clinical exam. She can take [id number] Tylenol for symptomatic relief of discomfort. I advised her not to take any nonsteroidal anti-inflammator ies. She should rest, ice, elevate and compress. She has any questions or concerns she should contact my office. The patient agrees with the above-noted plan. Indirect care and treatment in conjunction with Dr. Rivera Additional treatment plan discussed with the patient in detail included the following; - Provider focused nonsteroidal anti-inflammator y regimen (discussed were the pros, cons, benefits and risks as well as any black box warnings) in patients over 60 years old they should be very cautious in taking these medications due to potential decreased kidney function and or elevated blood pressure. - Analgesic pain medication for pain suppression (discussed were the pros, cons, benefits and risks as well as any black box warnings) - The use of topical pain relieving medication were discussed - The use of ice to decrease inflammation and pain - The use of assistive ambulatory devices for ambulation and fall prevention - Formal specific guided physical therapy program I reviewed my findings at length with the patient today. ? ? ?We discussed the nature and etiology of this problem along with current treatment options. We discussed the expected course and outcomes and what to expect. We also discussed risks and benefits. ? ? ? All of their questions were answered today, and there was exhibited understanding and comprehension of all that was discussed. Time Spent: 10 minutes were spent reviewing previous imaging and charting. ? ? ?10 minutes were spent obtaining patient history. ? ? ?5 minutes were spent on physical exam. ? ? ?5? ? ?minutes were spent explaining diagnosis and assessment. Today's documentation was made using voice recognition software. This note may contain grammatical errors secondary to the software. Not available 07/31/2022 08:01:39 08/11/2022 08/11/2022 71-year-old female following up on her right knee joint effusion that was aspirated on 07/28/2022. She is doing well clinically she will call us if her symptoms return. She has no other complaints at this time. Patient agrees with the above-noted plan. Indirect care and treatment in conjunction with Dr. Rivera Additional treatment plan discussed with the patient in detail included the following; - Provider focused nonsteroidal anti-inflammator y regimen (discussed were the pros, cons, benefits and risks as well as any black box warnings) in patients over 60 years old they should be very cautious in taking these medications due to potential decreased kidney function and or elevated blood pressure. - Analgesic pain medication for pain suppression (discussed were the pros, cons, benefits and risks as well as any black box warnings) - The use of topical pain relieving medication were discussed - The use of ice to decrease inflammation and pain - The use of assistive ambulatory devices for ambulation and fall prevention - Formal specific guided physical therapy program I reviewed my findings at length with the patient today. ? ? ?We discussed the nature and etiology of this problem along with current treatment options. We discussed the expected course and outcomes and what to expect. We also discussed risks and benefits. ? ? ? All of their questions were answered today, and there was exhibited understanding and comprehension of all that was discussed. Time Spent: 10 minutes were spent reviewing previous imaging and charting. ? ? ?10 minutes were spent obtaining patient history. ? ? ?5 minutes were spent on physical exam. ? ? ?5? ? ?minutes were spent explaining diagnosis and assessment. Today's documentation was made using voice recognition software. This note may contain grammatical errors secondary to the software. Not available 08/11/2022 12:20:13 Plan of Treatment Reminders Order Date Submit Date Provider Last Modified By Organization Details Last Modified Time Details Appointments None recorded. Lab None recorded. Referral None recorded. Procedures None recorded. Surgeries None recorded. Imaging XR, knee, 4 or more view 2022 [facility], [address], [address], [place], [address], 13:27:16 Medication Orders lidocaine HCl 10 mg/mL (1 %) injection solution 2022 023 [email or web address] [id number], [address] [place] [address], [id number], 08:02:13 Patient TargetsNo targets recorded. Patient Instructions Encounter Date Encounter Id Patient Instructions Last Modified By Organization Details Last Modified Time 07/28/2022 [id number] X-rays at today' s visit reveal well-maintained joint space in all 3 compartments. Mild spurring of the patella on the superior pole without acute bony abnormality Not available 07/31/2022 08:02:58 Reason for Referral None Reported. Problems Name Problem SNOMED Code Status Onset Date Resolution Date Notes Provider Name and Address Organization Details Recorded Time Effusion of joint of right knee [id number] Active 2022 KAVITHA LOPEZ PA-C [address], [place], [address], [place] [facility], 3 08:01:45 Problem Notes None recorded. Procedures Surgical History Date Name Laterality Status Provider Name and Address Organization Details Recorded Time 07/29/19 23 Knee Joint/Bursa Asp & Inj completed KAVITHA LOPEZ PA-C [address], [place], [address], [place] [facility], P 07/31/2022 08:00:20 Hysterectomy completed Lolis Khan [facility], P 07/28/2022 09:22:40 small intestine excision completed Lolis Khan [facility], P 07/28/2022 09:22:50 angioplasty of blood vessel completed Lolis Khan [facility], P 07/28/2022 09:22:57 Imaging Results None recorded. Procedure Notes None recorded. Medical Equipment None Reported. Allergies Allergen ID Allergen Name Allergen Category Reaction Reaction Severity Criticality Documentation Date Start Date Code Code System Note Provider Name and Address Organization Details Recorded Time 4710 lisinopri l medicatio n Not available Not available Not available 07/28/2022 15513 RxNorm Lolis Khan [facility], [facility], P 3 09:20:19 4711 atorvasta tin medicatio n Not available Not available Not available 07/28/2022 45081 RxNorm Lolis Khan [facility], [facility], P 3 09:20:24 4712 latex environme nt,medica tion Not available Not available Not available 07/28/2022 98854 91 RxNorm Lolis Khan [facility], P 3 09:20:29 4713 adhesive tape environme nt,medica tion Not available Not available Not available 07/28/2022 29845 UNK Lolis Khan [facility], P 3 09:20:35 Medications Name Sig Start Date Stop Date Status Note LastModified by Organization Details LastModified Time lidocaine HCl 10 mg/mL (1 %) injection solution Take 5 mL by injection route. 2022 active Not Available Not Available Not Avai lable clopidogrel 75 mg tablet TAKE 1 TABLET BY MOUTH EVERY DAY active Not Available Not Available No t Available amoxicillin 500 mg tablet TAKE 1 TABLET BY MOUTH THREE TIMES DAILY UNTIL ALL TAKEN 08/11 completed Not Available Not Available Not Available metoprolol tartrate 50 mg tablet TAKE 1 TABLET BY MOUTH TWICE DAILY active Not Available Not Available No t Available pravastatin 20 mg tablet TAKE 1 TABLET BY MOUTH EVERY DAY active Not Available Not Available No t Available hydrochloro thiazide 25 mg tablet TAKE 1 TABLET BY MOUTH EVERY DAY active Not Available Not Available No t Available losartan 100 mg tablet TAKE 1 TABLET BY MOUTH EVERY DAY active Not Available Not Available No t Available metformin ER 500 mg tablet,exte nded release 24 hr TAKE 2 TABLETS BY MOUTH EVERY DAY active Not Available Not Available No t Available terazosin 10 mg capsule TAKE 1 CAPSULE BY MOUTH EVERY DAY active Not Available Not Available No t Available escitalopra m 10 mg tablet TAKE 1 TABLET BY MOUTH EVERY DAY active Not Available Not Available No t Available Lantus Solostar U-100 Insulin 100 unit/mL (3 mL) subcutaneou s pen ADMINISTE R 23 UNITS UNDER THE SKIN DAILY active Not Available Not Available No t Available OneTouch Verio test strips USE DIRECTED TO TEST BLOOD GLUCOSE LEVELS EVERY DAY active Not Available Not Available No t Available Spiriva Respimat 2.5 mcg/actuati on solution for inhalation INHALE 2 PUFFS BY MOUTH EVERY DAY active Not Available Not Available No t Available OneTouch Delica Plus Lancet 30 gauge USE DIRECTED TO TEST BLOOD GLUCOSE ONCE DAILY active Not Available Not Available No t Available Vitals Date Recorded Body height Body mass index (BMI) Body weight Provider Name and Address Organization Details Last Updated DateTime 07/28/2022 162.56 cm 37.8 kg/m2 91341.32 g Lolis Khan [facility], [facility] 07/28/2022 09:20:43 Date Recorded Body height Provider Name an d Address Organization Details Last Updated DateTime 08/11/2022 162.56 cm Fani Kemp [facility], P 08/11/2022 10:39:23 Social History Question Answer Notes LastModified by Organizat ion Details LastModified Time Tobacco Smoking Status Former Smoker Lolis bird, [facility], [facility] 07/28/2022 09:21:03 What Is Your Level Of Alcohol Consumption? None Information not available 07/28/2022 When Did You Quit Smoking? 1-5yearssin celastcigar ette [email or web address] Information not available 07/28/2022 Do You Use Any Illicit Or Recreational Drugs? No [email or web address] Information not available 07/28/2022 Sex: Unknown Functional Status None recorded. Mental Status None recorded. Family History Relationship Description Onset Age of this Age Resolved Age Notes LastModified by Organization Details LastModified Time Mother Deep venous thrombosis Not available 03/2022 09:21:49 Mother Family history of malignant neoplasm [email or web address] Not available 07/28 09:21:57 Father Heart disease [email or web address] Not available 07/28 09:22:05 Father Hyperlipidem ia [email or web address] Not available 07/28 09:22:16 Father Hypertensive disorder [email or web address] Not available 07/28 09:22:28 Medical History Condition Response Coronary Artery Disease N Gout N Hyperthyroidism N MRSA N Blood Transfusion N Emphysema N Depression N COPD Y Hypothyroidism N Pacemaker N Vascular Disease Y Gastrointestinal Disease N Anxiety Disorder N Autoimmune disease N Arthritis N Cancer Y Stroke N High Cholesterol N Neurologic Disorder N Liver Disease N Organ Transplant N Rheumatoid Arthritis N Arrhythmia N Fibromyalgia N Kidney Disease N Allergies/Hayfever N Adverse Reaction to Anesthesia N Thyroid Problems N Anemia N Brain Injury N Heart Attack (PA) N Osteopenia N Diabetes Y Bleeding Disorder N Seizures/Epilepsy N AIDS/HIV N Congestive Heart Failure (CHF) N Asthma N Amputation N Reflux/GERD N Sleep Apnea N Aneurysm N Hepatitis N Heart Disease N Pulmonary Embolism N Hypertension N Osteoporosis N Gynecological HistoryNo gynecological history recorded. Obstetrics History GPAL:G 0 P 0 0 0 0 Past Encounters Encounter ID Performer Location Encounter Start Date Encounter Closed Date Diagnosis/Indication Diagnosis SNOMED-CT Code Diagnosis ICD10 Code Diagnosis Note [id number] MD AMARJIT Al [address] [facility] [address] [place] [address] 07/28/2022 08:37:36 07/28/2022 09:46:56 Pain of right knee joint [id number] 38777 M25.561 Effusion o f joint of right knee 6510088558 07976 M25.461 [id number] MD AMARJIT Al [address] [facility] [address] [place] [address] 08/11/2022 10:00:40 08/11/2022 10:58:14 Follow-up visit [id number] Z09 Health Concerns Section Related Observation LastModified by Organization Detai ls LastModified Time None Recorded Concern Status LastModified by Organization Details LastModified Time None Recorded Advance Directives Directive None Recorded Payers Encounter Date Sequence Insurance Name Policy Number Policy Leos Covered Member ID Leos Member ID Guarantor Name 07/28/2022 1 [facility] (MEDICARE REPLACEMENT/A DVANTAGE - PPO) [id number] Sharon Smith [id number] Sharon Smith 08/11/2022 1 [facility] (MEDICARE REPLACEMENT/A DVANTAGE - PPO) [id number] Sharon Andrei Smith [id number] Sharon Smith Notes Date Note Type Note Provider Name and Address Organization Details Recorded Time 07/28/2022 text/html This is a very pleasant 71-year-old female with chief complaint of right knee pain. She is a patient of Dr. Jaime Cade [facility]. History of left lower extremity stents recently seen by her doctor with ultrasound this past Sunday which was negative for DVT of the right lower extremity. She has ongoing swelling of the right knee. Along with stiffness. She does take Plavix and she is on aspirin daily. Chief complaint of stiffness of the right knee and mild discomfort. She denies any trauma. X-rays at today's visit reveal well-maintained joint space in all 3 compartments. Mild spurring of the patella on the superior pole without acute bony abnormality KAVITHA LOPEZ PA-C [address] [facility] [address], [place], [address], [place] [facility], [facility] 07/31/2022 08:03:10 08/11/2022 text/html 69-year-old fema le follow-up visit seen on 07/28/2022 for which she had a right knee joint effusion which was aspirated. She states significant improvement she is doing well here for scheduled follow-up KAVITHA LOPEZ PA-C [address], [place], [address], [place] [facility], [facility] 08/11/2022 12:20:52 OBGyn Episode No OBEpisode recorded.
== END 2024-06-02 10:40 | disposition home or self-care (01) ==
LOC: HO.MAMMO 10:39
PROVIDERS: PCP Internal Medicine; Visit Provider Internal Medicine
DX: N63.12 Unspecified lump in the right breast, upper inner quadrant (principal)
CPT/HCPCS: 76642

== ENCOUNTER → 2024-06-02 11:00 | Outpatient (BNV) | payer MEDICARE, MEDICAID, SELFPAY | PROVIDERS: PCP Internal Medicine; Visit Provider Internal Medicine | DX: N63.12 Unspecified lump in the right breast, upper inner quadrant (principal) | CPT/HCPCS: 76642 ==

== ENCOUNTER 2024-08-20 07:23 | Outpatient (REF) | payer MEDICARE, MEDICAID, SELFPAY ==
--- NOTE | ~2024-08-20 | CT_ITS ---
CLINICAL HISTORY: Z87.891 - Personal history of nicotine dependence CT lung cancer screening (LDCT) Comparison: None provided Technique: Axial CT images of the chest using low-dose technique. Referring provider counseled the patient on shared decision-making for LDCT screening. Additional counseling was provided on smoking cessation. Effective radiation dose total: DLP 55.9 mGycm, CTDIvol 1.8 mGy. Findings: Lung: The trachea and central bronchi are patent. No dense consolidation, pleural effusion or pneumothorax. Left lower lobe subpleural 4 mm nodule image 84 series 4. Centrilobular emphysema. Coronary artery calcifications: Moderate Normal heart size. No pericardial effusion or aortic dilation. Decompressed esophagus. No chest wall lesions, thyroid nodules or adenopathy. Limited upper abdomen: Unremarkable Other: No acute osseous findings. Impression: Benign-appearing left lower lobe pulmonary nodule. Annual screening recommended. Lung rads category 2 Category 1: Normal; continue annual screening Category 2: Benign appearance or behavior, continue annual screening Category 3: Probably benign, [address] recommended Category 4A: Suspicious, [address] recommended; may consider PET/CT Category 4B: Suspicious, Additional diagnostics and/or tissue sampling recommended Category 4X: Suspicious, Additional diagnostics and/or tissue sampling recommended Category 0: Recalls (incomplete screen due to Incomplete coverage, Noise, Respiratory motion, Expiration, Obscured by acute abnormality) This document has been electronically signed by: Jenifer Silva MD on 08/21/2024 06:22:02
--- OUTSIDE RECORDS SUMMARY | 2024-08-20 07:25 | XMS_ITS | Encounter Summary ---
Author Organization [facility] Address [address] [place] [address] Care Team Providers Care Net Developer Contract Name Role Phone MiriamZeeshan shaw Primary Care Provider [phone] Encounter Details Date Type Department Care Team (Late st Contact Info) Description 01/29/[address] [facility] Lab [address] [facility] [place] [address] Jair Santa [address] [place] [phone] Hematuria, unspecified; Urinary tract infection, site [...] as of this encounter Plan of Treatment Upcoming Encounters Date Type Department Care Team (Late st Contact Info) Description 10/13/2024 2:00 PM EDT Office Visit Orthopedic Surgery - [place] [address] [address] Bhargav Oseguera DPM [address] [address] documented as of this encounter Procedures Procedure [...] reflex microscopic (01/29/2024 2:00 PM EST) Specific [place] Urine 1.024 1.003 - 1.030 LAB URINALYSIS - AUTOMATED METHOD 01/29/2024 6:27 PM [facility] pH, Urine 7.0 5.0 - 8.0 pH LAB URINALYSIS - AUTOMATED METHOD 01/29/2024 6:27 PM [facility] Leukocytes, Urine Moderate(A) Negative LAB URINALYSIS - AUTOMATED METHOD 01/29/2024 6:27 PM [facility] Nitrite, Urine Negative Negative LAB URINALYSIS - AUTOMATED METHOD 01/29/2024 6:27 PM [facility] Protein, Urine 100(A) <=Trace mg/dL LAB URINALYSIS - AUTOMATED METHOD 01/29/2024 6:27 PM [facility] Glucose, Urine Negative Negative mg/dL LAB URINALYSIS - AUTOMATED METHOD 01/29/2024 6:27 PM [facility] Ketones, Urine Trace(A) Negative mg/dL LAB URINALYSIS - AUTOMATED METHOD 01/29/2024 6:27 PM [facility] Urobilinogen , Urine 0.2 0.2 - 1.0 mg/dL LAB URINALYSIS - AUTOMATED METHOD 01/29/2024 6:27 PM [facility] Bilirubin, Urine Negative Negative LAB URINALYSIS - AUTOMATED METHOD 01/29/2024 6:27 PM [facility] Blood, Urine Moderate(A) Negative LAB URINALYSIS - AUTOMATED METHOD 01/29/2024 6:27 PM [facility] RBC, Urine 415.0(H) 0 - 4 /HPF LAB URINALYSIS - AUTOMATED METHOD 01/29/2024 6:27 PM [facility] WBC, Urine 296.9(H) 0 - 4 /HPF LAB URINALYSIS - AUTOMATED METHOD 01/29/2024 6:27 PM [facility] Squamous Epithelial, Urine 25 0 - 60 /LPF LAB URINALYSIS - AUTOMATED METHOD 01/29/2024 6:27 PM [facility] Bacteria, Urine Many(A) Negative /HPF LAB URINALYSIS - AUTOMATED METHOD 01/29/2024 6:27 PM [facility] Hyaline Casts, Urine 0.8 0 - 3 /LPF LAB URINALYSIS - AUTOMATED METHOD 01/29/2024 6:27 PM [facility] Urine Urine specimen obtained by clean catch procedure / Unknown 01/29/2024 2:00 PM EST 01/29/2024 5:31 PM EST Jair Santa LAB URINE ORDERABLES Final Resul t [facility] [address] [place] [address], * (ABNORMAL) Culture urine (01/29/2024 2:00 PM EST) Culture, Urine >100,000 CFU/mL Klebsiella pneumoniae ssp pneumoniae(A) CAREN 01/31/2024 10:47 AM EST [facility] Comment: This is an edited [...] pneumoniae Trimethoprim/Sulfamethoxazo le CAREN <=20 ug/ml: Susceptible us Jair Santa LAB MICROBIOLOGY - GENERAL ORDER WISAM Final Result [facility] ([facility] [address] [place] [address], [place] [phone] documented in this encounter Visit Diagnoses Diagnosis Hematuria, unspecified Urinary tract infection, site not specified documented in this encounter Care Teams Net Developer Contract Relationship Specialty Start Date End Date Zeeshan Denson DO [address] [place] [id number] PCP - General 08/21/23 documented as of this encounter
== END 2024-08-20 07:24 | disposition home or self-care (01) ==
LOC: HO.CT 07:23
PROVIDERS: PCP Internal Medicine; Visit Provider Internal Medicine Pulmonary Disease
DX: Z12.2 Encounter for screening for malignant neoplasm of respiratory organs (principal); Z87.891 Personal history of nicotine dependence
CPT/HCPCS: 71271

== ENCOUNTER → 2024-08-20 07:25 | Outpatient (BNV) | payer MEDICARE, MEDICAID, SELFPAY | PROVIDERS: PCP Internal Medicine; Visit Provider Radiology Diagnostic Radiology | DX: Z12.2 Encounter for screening for malignant neoplasm of respiratory organs (principal); R91.1 Solitary pulmonary nodule; Z87.891 Personal history of nicotine dependence | CPT/HCPCS: 71271 ==

== ENCOUNTER 2024-11-28 10:08 | Outpatient (REF) | payer MEDICARE, MEDICAID, SELFPAY ==
--- NOTE | ~2024-11-28 | MM_ITS ---
EXAMINATION: MM DIAGNOSTIC DIGITAL BREAST TOMOSYNTHESIS, BILATERAL Limited right breast ultrasound. CLINICAL INFORMATION: 6 month follow-up for area of probable fat necrosis in the right breast at 1:00 5 cm from the nipple. Patient due for bilateral annual mammography. COMPARISON: Mammography: Comparison is made with relevant prior exams. TECHNIQUE: Digital breast mammography with tomosynthesis is performed in both the craniocaudal and mediolateral oblique views along with computer-aided detection (CAD). FINDINGS: There are scattered areas of fibroglandular density. Right: Previously seen focal asymmetry in the retroareolar region upper central breast anterior depth is no longer seen. No suspicious masses calcifications or other abnormal findings. Targeted color Doppler ultrasound scanning in the right breast from 12-2 o'clock demonstrates normal fibroglandular breast tissue. There is normal fibronodular breast tissue at 1:00 5 cm from the nipple. The previously seen hyperechoic and hypoechoic areas no longer seen and likely represented resolved fat necrosis. Left: There are no significant masses, abnormal calcifications, or other abnormalities. Results are provided to the patient at time of visit by the technologist. MM/MM tomosynthesis diagnostic BI IMPRESSION: No mammographic evidence of malignancy. ASSESSMENT: BI-RADS Category 1: Negative RECOMMENDATION: 1 year F/U This patient's information was entered into a reminder system with a target due date for their next mammogram. Electronically signed by: Silvana Arndt DO 11/28/2024 12:35 PM EDT
--- OUTSIDE RECORDS SUMMARY | 2024-11-28 11:01 | XMS_ITS ---
Author Name [facility] Organization Unknown History of Medication Use Medication Directions Dispensed Refills Start Date End Date Stat us lidocaine HCl 10 mg/mL (1 %) injection solution Take 5 mL by injection route. 07/31/2022 active amoxicillin 500 mg tablet TAKE 1 TABLET BY MOUTH THREE TIMES DAILY UNTIL ALL TAKEN active clopidogrel 75 mg tablet TAKE 1 TABLET B Y MOUTH EVERY DAY active escitalopram 10 mg tablet TAKE 1 TABLET BY MOUTH EVERY DAY active hydrochlorothiazide 25 mg tablet TAKE 1 TABLET BY MOUTH EVERY DAY active Lantus Solostar U-100 Insulin 100 unit/mL (3 mL) subcutaneous pen ADMINISTER 23 UNITS UNDER THE SKIN DAILY active losartan 100 mg tablet TAKE 1 TABLET BY MOUTH EVERY DAY active metformin ER 500 mg tablet,extended release 24 hr TAKE 2 TABLETS BY MOUTH EVERY DAY active metoprolol tartrate 50 mg tablet TAKE 1 TABLET BY MOUTH TWICE DAILY active OneTouch Delica Plus Lancet 30 gauge USE DIRECTED TO TEST BLOOD GLUCOSE ONCE DAILY active pravastatin 20 mg tablet TAKE 1 TABLET B Y MOUTH EVERY DAY active Spiriva Respimat 2.5 mcg/actuation solution for inhalation INHALE 2 PUFFS BY MOUTH EVERY DAY active terazosin 10 mg capsule TAKE 1 CAPSULE BY MOUTH EVERY DAY active Allergies Allergen Reaction Severity Comment Documented Date Source Statu s ATORVASTATIN ENS_AONECT LATEX ENS_AONECT LISINOPRIL ENS_AONECT Problems Problem Status Onset Date Problem Type Date of Resoluti on Source Effusion of right knee joint active 2022-07-31 ProblemAct ENS_AONECT Encounters Encounter Type Encounter Reason Primary Diagnosis Location Date Ambulatory [facility] 09/06/2022 Ambulatory [facility] 08/31/2022 Ambulatory [facility] 08/11/2022 Ambulatory [facility] 08/11/2022 [facility]ulatory [facility] 08/01/2022 Ambulatory [facility] 07/31/2022 Ambulatory [facility] 07/28/2022 Ambulatory [facility] 07/28/2022 Ambulatory [facility] 07/28/2022 Ambulatory [facility] 07/12/2022 Ambulatory [facility] 07/12/2022
--- OUTSIDE RECORDS SUMMARY | 2024-11-28 11:01 | XMS_ITS | Clinical Summary ---
Author Organization [facility] Address [address] [place] [address] Phone Care Team Providers Care Interactive Digital Media Specialist Name Role Phone Zeeshan Denson DO Primary Care Provider [phone] Allergies No known active allergies Medications fluticasone-dheeraj meterol (ADVAIR DISKUS) 250-50 mcg/dose diskus inhaler Inhale 1 puff by mouth 2 (two) times a day. Rinse mouth with water after use to reduce aftertaste and incidence of candidiasis. Do not swallow. Active ipratropium-alb uteroL (COMBIVENT RESPIMAT) 20-100 mcg/actuation inhaler Inhale 1 puff by mouth 4 (four) times a day. Active insulin regular (HumuLIN R) 100 unit/mL injection Inject 0.17 mL (17 Units total) under the skin 1 (one) time each day. Active multivitamin tablet Take 1 tablet by mouth 1 (one) time each day. Active lactobacillus acidoph-l.bulga r 100 million cell granules in packet Take 1 packet by mouth. Active aspirin 81 mg EC tablet Take 1 tablet (81 mg total) by mouth 1 (one) time each day. Active acetaminophen (TYLENOL 8 HOUR) 650 mg 8 hr tablet Take 1 tablet (650 mg total) by mouth 2 (two) times a day. Do not crush, chew, or split. Active hydroCHLOROthia zide (HYDRODIURIL) 25 mg tablet Take 1 tablet (25 mg total) by mouth 1 (one) time each day. Active metoprolol tartrate (LOPRESSOR) 25 mg tablet Take 2 tablets (50 mg total) by mouth 2 (two) times a day. Active metFORMIN (GLUCOPHAGE) 500 mg tablet Take 1 tablet (500 mg total) by mouth 1 (one) time each day. Active terazosin (HYTRIN) 10 mg capsule Take 1 capsule (10 mg total) by mouth 1 (one) time. Active losartan (COZAAR) 100 mg tablet Take 1 tablet (100 mg total) by mouth 1 (one) time each day. Active escitalopram (LEXAPRO) 10 mg tablet Take 1 tablet (10 mg total) by mouth 1 (one) time each day. Active clopidogreL (PLAVIX) 75 mg tablet Take 1 tablet (75 mg total) by mouth 1 (one) time each day. Active fluticasone (VERAMYST) 27.5 mcg/actuation nasal spray Administer 2 sprays into each nostril 1 (one) time each day. Active albuterol HFA (PROAIR HFA ; PROVENTIL HFA ; VENTOLIN HFA) 90 mcg/actuation inhaler Inhale 2 puffs by mouth every 6 (six) hours if needed for wheezing. Active tirzepatide (Mounjaro) 7.5 mg/0.5 mL injection Inject 0.5 mL (7.5 mg total) under the skin. Active vibegron (Gemtesa) 75 mg tablet tablet Take 1 tablet (75 mg total) by mouth 1 (one) time each day. Active diclofenac (Voltaren Arthritis Pain) 1 % topical gel Apply 4 g topically 2 (two) times a day. 240 g 1 5 12/13/19 25 Active Encounters Date Type Department Care Team Description 10/13/2024 2:00 PM EDT Office Visit Orthopedic Surgery - [address] [address] Bhargav Oseguera, DPM Metatarsalgia of both feet (Primary Dx); Type 2 diabetes mellitus (CMS/HCC V24, CMS/HCC V28); Diabetic mononeuropathy simplex (CMS/HCC V24, CMS/HCC V28); Type II diabetes mellitus with peripheral circulatory disorder (CMS/HCC V24, CMS/HCC V28) from Last 3 Months Social History Tobacco Use Types Packs/Day Years Used Date Smoking Tobacco: Never Assessed Comments Unknown Sex and Gender Information Value Date Recorded Sex Assigned at Female 01/25/2024 8:03 AM EST Legal Sex Female 1:54 AM EST Gender Identity Female 01/25/2024 8:03 AM EST Sexual Orientation Straight 01/25/2024 8: 03 AM EST Last Filed Vital Signs Vital Sign Reading Time Taken Comments Blood Pressure - - Pulse - - Temperature - - Respiratory Rate - - Oxygen Saturation - - Inhaled Oxygen Concentration - - Weight 104 kg (230 lb) 10/13/2024 2:00 PM EDT Height 162.6 cm (5' 4 ) 10/13/2024 2:00 PM EDT Body Mass Index 39.48 10/13/2024 2:00 PM EDT Plan of Treatment Upcoming Encounters Date Type Department Care Team (Late st Contact Info) Description 12/15/2024 10:30 AM EDT Office Visit Orthopedic Surgery - [place] [id number] [phone] Bhargav Oseguera, DPM [address] [address] Health Maintenance Due Date Last Done Comments Diabetes: Annual Foot Exam 10/05/1959 Diabetes: Annual Retina Eye Exam 10/05/1959 Falls Risk Assessment 01/29/2022 Hepatitis C Screening 01/29/2022 Medicare Annual Wellness Visit 01/29/2022 Social Influencers of Health Screening 01/29/2022 Depression Screening 02/27/2024 Diabetes: Annual Urine Albumin-Creatinine Ratio (uACR) 07/18/2024 Influenza Vaccine (#1) 2024 4, 11/30/2022, 11/21/2021, Additional history exists Diabetes: Blood Sugar Control Test (HGBA1C) 01/17/2025 07/17/2024, 04/03/2024 Diabetes: Annual GFR (Glomerular Filtration Rate) 07/17/2025 07/17/2024, 04/03/2024, 03/19/2024, Additional history exists Hypertension/CHF/CAD Annual BMP Blood Test 07/17/2025 07/17/2024, 04/03/2024, 03/19/2024, Additional history exists Colorectal Cancer Screening: FIT-DNA (Cologuard) 06/21/2026 06/22/2023, 06/22/2023, 10/05/2020 Cholesterol Screening (Lipid Panel) 07/17/2029 07/17/2024 Osteoporosis Screening (Bone Density Screening) 01/06/2032 01/05/2022, 10/01/2019 DTaP,Tdap,and Td Vaccines (2 - Td or Tdap) 07/07/2034 07/07/2024 Breast Cancer Screening Discontinued 10/20/19 23, 10/17/2021, 10/14/2020, Additional history exists RSV Immunization Adult Patients Completed 11/30/2022 Pneumococcal Vaccine: 50+ Years Completed 10/30/2023 Zoster Vaccines Completed 01/25/2024, 11/13/2023 COVID-19 Vaccine Completed 07/07/2024, 04/2023, 11/30/2022, Additional history exists HIB Vaccines Aged Out No longer eligi [...] age to complete this topic Meningococcal B Vaccine Aged Out No l onger eligible based on patient's age to complete this topic RSV Immunization Patients Under 20 months Aged Out No longer eligible based on patient's age to complete this topic Varicella Vaccines Aged Out No longer eligible based on patient's age to complete this topic Procedures Procedure Name Priority Date/Time Associated Diagnosis Comments BASIC METABOLIC PANEL Routine 07/17/2024 12:35 PM EDT DM (diabetes mellitus) ([facility] V24, [facility] V28) HLD (hyperlipidemia) HTN (hypertension) HEMOGLOBIN A1C Routine 07/17/2024 12:35 PM EDT DM (diabetes mellitus) ([facility] V24, [facility] V28) HLD (hyperlipidemia) HTN (hypertension) LIPID PANEL WITH REFLEX TO DIRECT LDL Routine 07/17/2024 12:35 PM EDT DM (diabetes mellitus) ([facility] V24, [facility] V28) HLD (hyperlipidemia) HTN (hypertension) [facility] SCREENING DIGITAL Routine 10/19/2022 12:46 PM EDT Encounter for screening mammogram for malignant neoplasm of breast [facility] DEXA AXIAL SKELETON Routine 01/05/2022 10:56 AM EST Encounter for screening for osteoporosis from Last 3 Months or Most Recently Relevant to Health Maintenance Results * (ABNORMAL) Lipid panel with reflex to direct LDL (07/17/2024 12:35 PM EDT) Cholesterol 92 0 - 200 mg/dL LAB CHEMISTRY METHOD 07/17/2024 10:48 PM EDT [facility] Triglycerides 158(H) 0 - 150 mg/dL LAB CHEMISTRY METHOD 07/17/2024 10:48 PM EDT [facility] HDL 45 >=40 mg/dL LAB CHEMISTRY METHOD 07/17/2024 10:48 PM EDT [facility] LDL Calculated 15 0 - 100 mg/dL LAB CHEMISTRY METHOD 07/17/2024 10:48 PM [facility] VLDL Cholesterol Kailash 31.6 mg/dL LAB CHEMISTRY METHOD 07/17/2024 10:48 PM T [facility] Non HDL Chol. (LDL+VLDL) 47 <145 mg/dL LAB CHEMISTRY METHOD 07/17/2024 10:48 PM T [facility] Chol/HDL Ratio 2.0 0.0 - 4.4 LAB CHEMISTRY METHOD 07/17/2024 10:48 PM [facility] Blood Venous blood specimen / Unknown Venipuncture / Unknown 07/17/2024 12:35 PM EDT 07/17/2024 12:35 PM EDT Jair Santa LAB BLOOD ORDERABLES Final Resul t Performing Organization Address City/[facility]/ZIP Co de Phone Number [facility] [address] [place] [address], [place] [phone] * Hemoglobin A1c (07/17/2024 12:35 PM EDT) Pathologist [facility] Hemoglobin A1C 5.6 <6.5 % LAB CHEMISTRY METHOD 07/20/2024 11:21 AM EDT [facility] Mean Bld Glu Estim. 114 mg/dL LAB CHEMISTRY METHOD 07/20/2024 11:21 AM EDT [facility] Blood Venous blood specimen / Unknown Venipuncture / Unknown 07/17/2024 12:35 PM EDT 07/17/2024 12:35 PM EDT Jair Santa LAB BLOOD ORDERABLES Final Resul t Performing Organization Address [facility]/ZIP Co de Phone Number [facility] [address] [place] [address], [place] [phone] * (ABNORMAL) Basic metabolic panel (07/17/2024 12:35 PM EDT) [facility] Sodium 132(L) 133 - 145 mmol/L LAB CHEMISTRY METHOD 07/17/2024 10:40 PM EDT [facility] Potassium 3.4(L) 3.5 - 5.5 mmol/L LAB CHEMISTRY METHOD 07/17/2024 10:40 PM EDT [facility] Chloride 96 96 - 110 mmol/L LAB CHEMISTRY METHOD 07/17/2024 10:40 PM EDT [facility] CO2 26 21 - 32 mmol/L LAB CHEMISTRY METHOD 07/17/2024 10:40 PM EDT [facility] Anion Gap 10 3 - 11 LAB CHEMISTRY METHOD 07/17/2024 10:40 PM EDT [facility] Glucose 105(H) 70 - 100 mg/dL LAB CHEMISTRY METHOD 07/17/2024 10:40 PM EDT [facility] BUN 12 5 - 25 mg/dL LAB CHEMISTRY METHOD 07/17/2024 10:40 PM EDT [facility] Creatinine 0.81 0.50 - 1.10 mg/dL LAB CHEMISTRY METHOD 07/17/2024 10:40 PM EDT [facility] eGFR 76 >=60 mL/min/1. 73m2 LAB CHEMISTRY METHOD 07/17/2024 10:40 PM EDT [facility] Comment:Calculation based on the Chronic Kidney Disease Epidemiology Collaboration (CKD-EPI) equation refit without adjustment for race. BUN/Creatinine Ratio 14.8 LAB CHEMISTRY METHOD 07/17/2024 10:40 PM EDT [facility] Calcium 9.3 8.5 - 10.5 mg/dL LAB CHEMISTRY METHOD 07/17/2024 10:40 PM EDT [facility] Blood Venous blood specimen / Unknown Venipuncture / Unknown 07/17/2024 12:35 PM EDT 07/17/2024 12:35 PM EDT Jair Santa LAB BLOOD ORDERABLES Final Resul t [facility] [address] [place] [address], * [facility] SCREENING DIGITAL (10/19/2022 12:46 PM EDT) Anatomical Region Laterality Modality Mammography 10/19/2022 10:3 2 AM EDT Narrative 10/19/2022 12:46 PM EDT [facility] Diagnostic Imaging Department [address] [place] [address] Patient: SHARON SMITH /Age/Sex: 1950 72 - F Unit#: [id number] Location/Status: SPDIMAM/REG CLI Mnemonic/Ordering Site: [facility] Ordering Physician: CATHY LOCK NP [facility] Screening Digital - 10/19/22 - 1113 Report Status:Signed EXAM: [facility] Screening Digital EXAM DATE AND TIME: 10/19/2022 11:13 AM HISTORY: Screening. Mother had breast carcinoma at age 89. COMPARISON: 10/17/21, 10/14/20, 10/01/19 TECHNIQUE: Bilateral digital breast tomosynthesis was performed in the CC and MLO projections. Computer aided detection with Styloola 3D 3.1 was employed. TISSUE DENSITY: a. The breasts are almost entirely fatty. FINDINGS: No suspicious masses, grouped microcalcifications, or areas of architectural distortion are seen. The skin and vascularity are unremarkable. IMPRESSION: Stable mammographic appearance of the breasts. No evidence of malignancy is seen. A negative mammogram in the presence of a clinically suspicious palpable abnormality does not preclude the possibility of malignancy or alter the indications for biopsy. BI-RADS: Category 1: Negative RECOMMENDATION(S): 1: Routine screening mammogram BILATERAL in 1 year. Dictating Physician: TIANNA KIM MD Electronically Signed by: TIANNA KIM MD Dic Date/Time: 10/19/22 1246 Sign date/Time: 10/19/22 124 Procedure Note Tianna Kim MD - 04/03/2023 [facility] Diagnostic Imaging Department [address] [place], [place] [id number] Patient: SHARON SMITH /Age/Sex: 1950 - 72 - F Unit#: [id number] Location/Status: SPDIMAM/REG CLI Mnemonic/Ordering Site: [facility] Ordering Physician: CATHY LOCK NP [facility] Screening Digital - 10/19/22 - 1113 Report Status:Signed EXAM: [facility] Screening Digital EXAM DATE AND TIME: 10/19/2022 11:13 AM HISTORY: Screening. Mother had breast carcinoma at age 89. COMPARISON: 10/17/21, 10/14/20, 10/01/19 TECHNIQUE: Bilateral digital breast tomosynthesis was performed in the CCand MLO projections. Computer aided detection with Styloola 3D 3.1was employed. TISSUE DENSITY: a. The [...] Date/Time: 10/19/22 1246 Sign date/Time: 10/19/22 1246 Cathy Lock NP IMG BI PROCEDURES Final Re sult * [facility] DEXA AXIAL SKELETON (01/05/2022 10:56 AM EST) Anatomical Region Laterality Modality Mammography 01/05/2022 10:1 9 AM EST Narrative 01/05/2022 10:56 AM EST [facility] Diagnostic Imaging Department [address] [place] [id number] Patient: JUSTINESANCHEZSHARON Andrei /Age/Sex: 1950 - 71 - F Unit#: [id number] Location/Status: SPDIMAM/REG CLI Mnemonic[facility] Ordering Physician: CATHY LOCK [employer] [facility] Dexa Axial Skeleton - 01/05/221041 HISTORY: The patient is a 71-year-old postmenopausal female with clinical concern for metabolic bone disease. FINDINGS: Dual [...] 121% of that of age matched controls. This yields a T-score of 0.7 and a Z-score of 1.5 and there is therefore no evidence of osteoporosis or osteopenia here. IMPRESSION: 1. There is no evidence of osteoporosis or osteopenia. There has been an increase of 3.2% in bone mineral density in the lumbar spine since the prior examination of 10/01/2019. There has been a decrease of 2.2% in bone mineral density in the right femur and an increase of 3.6% in bone mineral density in the left femur. 2. FRAX analysis yields a 10-year probability of major osteoporotic fracture of 7.8% and a 10-year probability of hip fracture of 0.5%. Code 02089 Dictating Physician: ORQUIDEA POSADSA MD Electronically Signed by: ORQUIDEA POSADAS MD Dic Date/Time: 01/05/221054 Sign date/Time: 01/05/221055 Procedure Note Orquidea Posadas MD - 03/30/2023 [facility] Diagnostic Imaging Department [address] [place] [address] Patient: SMITHSHARON/Age/Sex: 1950 71 - F Unit#: [id number] Location/Status: [facility] Mnemonic[facility]ing [facility] Ordering Physician: CATHY LOCK NP [facility] Dexa Axial Skeleton - [...] density of the femurs bilaterally is 1.098 gm/[id number] is 109% of that of young normals [...] probability of hip fracture of 0.5%. Code 83691 Dictating Physician: ORQUIDEA POSADAS MD Electronically Signed by: ORQUIDEA POSADAS MD Dic Date/Time: 01/05/22 1055 Sign date/Time: 01/05/22 105 Cathy Lock NP IMG BI PROCEDURES Final Re sult from Last 3 Months or Most Recently Relevant to Health Maintenance Insurance [employer] MEDICARE MEDICAID - [place] Care Teams Interactive Digital Media Specialist Relationship Specialty Start Date End Date Zeeshan Denson DO [address] [place] [phone] PCP - General 08/21/23
--- OUTSIDE RECORDS SUMMARY | 2024-11-28 11:01 | XMS_ITS | Encounter Summary ---
Author Organization [facility] Address [address] [place] [address] Care Team Providers Care Repair Coil Winder Name Role Phone MiriamZeeshan shaw Primary Care Provider [phone] Encounter Details Date Type Department Care Team (Late st Contact Info) Description 01/29/2024 Lab Requisition [facility] - Main Lab [address] [facility] [place] [address] Jair Santa [address] [place] [phone] Hematuria, unspecified; Urinary tract infection, site [...] AM EDT Office Visit Orthopedic Surgery - [place] [address] [address] Bhargav Oseguera DPM [address] [phone] documented as of this encounter Procedures Procedure [...] reflex microscopic (01/29/2024 2:00 PM EST) Specific Edgar Urine 1.024 1.003 - 1.030 LAB URINALYSIS - AUTOMATED METHOD 01/29/2024 6:27 PM [facility] pH, Urine 7.0 5.0 - 8.0 pH LAB URINALYSIS - AUTOMATED METHOD 01/29/2024 6:27 PM [facility] Leukocytes, Urine Moderate(A) Negative LAB URINALYSIS - AUTOMATED METHOD 01/29/2024 6:27 PM [facility] Nitrite, Urine Negative Negative LAB URINALYSIS - AUTOMATED METHOD 01/29/2024 6:27 PM [facility] Protein, Urine 100(A) <=Trace mg/dL LAB URINALYSIS - AUTOMATED METHOD 01/29/2024 6:27 PM [facility] Glucose, Urine Negative Negative mg/dL LAB URINALYSIS - AUTOMATED METHOD 01/29/2024 6:27 PM [facility] Ketones, Urine Trace(A) Negative mg/dL LAB URINALYSIS - AUTOMATED METHOD 01/29/2024 6:27 PM [facility] Urobilinogen , Urine 0.2 0.2 - 1.0 mg/dL LAB URINALYSIS - AUTOMATED METHOD 01/29/2024 6:27 PM [facility] Bilirubin, Urine Negative Negative LAB URINALYSIS - AUTOMATED METHOD 01/29/2024 6:27 PM [facility] Blood, Urine Moderate(A) Negative LAB URINALYSIS - AUTOMATED METHOD 01/29/2024 6:27 PM [facility] RBC, Urine 415.0(H) 0 - 4 /HPF LAB URINALYSIS - AUTOMATED METHOD 01/29/2024 6:27 PM [facility] WBC, Urine 296.9(H) 0 - 4 /HPF LAB URINALYSIS - AUTOMATED METHOD 01/29/2024 6:27 PM [facility] Squamous Epithelial, Urine 25 0 - 60 /LPF LAB URINALYSIS - AUTOMATED METHOD 01/29/2024 6:27 PM [facility] Bacteria, Urine Many(A) Negative /HPF LAB URINALYSIS - AUTOMATED METHOD 01/29/2024 6:27 PM [facility] Hyaline Casts, Urine 0.8 0 - 3 /LPF LAB URINALYSIS - AUTOMATED METHOD 01/29/2024 6:27 PM [facility] Urine Urine specimen obtained by clean catch procedure / Unknown 01/29/2024 2:00 PM EST 01/29/2024 5:31 PM EST Jair Santa LAB URINE ORDERABLES Final Resul t [facility] [address] [place] [address], * (ABNORMAL) Culture urine (01/29/2024 2:00 PM [...] MICROBIOLOGY - GENERAL ORDER WISAM Final Result [facility] [address] [place] [address], documented in this encounter Visit Diagnoses Diagnosis Hematuria, unspecified Urinary tract infection, site not specified documented in this encounter Care Teams Repair Coil Winder Relationship Specialty Start Date End Date Zeeshan Denson DO [address] [place] [phone] PCP - General 08/21/23 documented as of this encounter
== END 2024-11-28 10:09 | disposition home or self-care (01) ==
LOC: HO.MAMMO 10:08
PROVIDERS: PCP Internal Medicine; Visit Provider Internal Medicine
DX: N64.89 Other specified disorders of breast (principal)
CPT/HCPCS: 76642; 77062; 77066

== ENCOUNTER → 2024-11-28 10:30 | Outpatient (BNV) | payer MEDICARE, MEDICAID, SELFPAY | PROVIDERS: PCP Internal Medicine; Visit Provider Internal Medicine | DX: R92.8 Other abnormal and inconclusive findings on diagnostic imaging of breast (principal) | CPT/HCPCS: 76642; 77066; G0279 ==